=== PATIENT | male | born 1960 | race Caucasian/White ===

== ENCOUNTER 2020-03-03 10:18 | Emergency (ER) | payer OTHER ==
[~2020-03-03] VITALS: Ht 157.5 cm; Wt 70.0 kg
[2020-03-03] MEDS ORDERED: SODIUM CHLORIDE 0.9% 1,000 ML IV ONE (10:38)
[2020-03-03] MEDS ORDERED: ACETAMINOPHEN 325MG TABLET PO ONE (10:45)
[2020-03-03 10:59] LABS: BASOPHILS % 0.6 % (0.0-2.0); HEMATOCRIT. 44.5 % (42.0-52.0); HEMOGLOBIN. 15.2 g/dL (14.0-18.0); LYMPHOCYTES % 24.3 % (20.0-50.0); MEAN CORPUSCULAR HEMOGLOBIN 29.8 pg (28.0-32.0); MEAN CORPUSCULAR VOLUME 87.1 fL (80.0-94.0); MEAN PLATELET VOLUME 8.5 fl (7.4-10.4); MONOCYTES % 6.8 % (2.0-8.0); NEUTROPHILS % 68.3 % (40.0-76.0); PLATELET 243 x1000/uL (130-400); RED BLOOD CELL COUNT 5.11 mill/uL (4.7-6.1); RED CELL DISTRIBUTION WIDTH 12.8 % (11.6-14.6)
[2020-03-03 11:03] LABS: CHLORIDE 99 mEq/L (98-107)
[2020-03-03] MEDS ORDERED: IBUPROFEN 600MG TABLET PO ONE (11:45)
[2020-03-03 12:24] VITALS: BP 123/78
== END 2020-03-03 12:28 | disposition home or self-care (01) ==
LOC: ER 10:18
DX: Z20.828 Contact with and (suspected) exposure to other viral communicable diseases (principal); J18.9 Pneumonia, unspecified organism; R00.0 Tachycardia, unspecified; Z71.89 Other specified counseling
CPT/HCPCS: 36415; 71045; 80053; 85025; 99284; J7030

== ENCOUNTER 2020-03-06 08:45 | Inpatient (IN) | payer OTHER ==
[~2020-03-06] VITALS: Ht 154.9 cm; Wt 65.8 kg
[2020-03-06] MEDS ORDERED: ACETAMINOPHEN 325MG TABLET PO ONE (09:00)
[2020-03-06 10:13] LABS: BASOPHILS % 0.1 % (0.0-2.0); HEMATOCRIT. 42.6 % (42.0-52.0); HEMOGLOBIN. 14.7 g/dL (14.0-18.0); LYMPHOCYTES % 7.3 % (20.0-50.0); MEAN CORPUSCULAR HEMOGLOBIN 29.9 pg (28.0-32.0); MEAN CORPUSCULAR VOLUME 86.6 fL (80.0-94.0); MEAN PLATELET VOLUME 9.3 fl (7.4-10.4); MONOCYTES % 2.8 % (2.0-8.0); NEUTROPHILS % 89.8 % (40.0-76.0); PLATELET 314 x1000/uL (130-400); RED BLOOD CELL COUNT 4.92 mill/uL (4.7-6.1); RED CELL DISTRIBUTION WIDTH 12.7 % (11.6-14.6)
[2020-03-06 10:19] LABS: CHLORIDE 98 mEq/L (98-107)
[2020-03-06 10:26] LABS: CLARITY URINE CLEAR (CLEAR); COLOR URINE YELLOW (YELLOW); D-DIMER 0.59 mg/L FEU (<0.50); KETONES URINE 4+ (NEGATIVE); LEUKOCYTE ESTERASE URINE NEGATIVE (NEGATIVE); NITRITE URINE NEGATIVE (NEGATIVE); OCCULT BLOOD URINE TRACE (NEGATIVE); PROTEIN URINE 2+ (NEGATIVE); SPECIFIC GRAVITY URINE 1.035 (1.005-1.030)
[2020-03-06 10:28] LABS: CREATINE KINASE 396 IU/L (39-308)
[2020-03-06] MEDS ORDERED: SODIUM CHLORIDE 0.9% 1,000 ML IV ONE (10:52)
[2020-03-06 16:30] VITALS: BP 150/93
[2020-03-06 16:45] VITALS: BP 150/93
[2020-03-06] MEDS ORDERED: HYDROCODONE/ACETAMINOPHEN 5/325MG TABLET PO PRN (16:45)
[2020-03-06] MEDS ORDERED: ONDANSETRON HCL 4MG/2ML INJ IV PRN (16:45)
[2020-03-06] MEDS ORDERED: LORAZEPAM 0.5MG TABLET PO PRN (16:45)
[2020-03-06] MEDS ORDERED: DOCUSATE SODIUM 100MG CAPSULE PO PRN (16:45)
[2020-03-06] MEDS ORDERED: GLUCO8 MT (17:04)
[2020-03-06] MEDS: ACETAMINOPHEN 325MG TABLET PO PRN ×2 (17:14→23:32)
[2020-03-06] MEDS ORDERED: DEXTROSE 50% WATER 50ML SYRINGE IV PRN (17:30)
[2020-03-06] MEDS ORDERED: BLOOD SUGAR DIAGNOSTIC STRIP TEST SCH (17:40)
[2020-03-06] MEDS: AZITHROMYCIN 500 MG TABLET PO SCH (17:42)
[2020-03-06 18:09] LABS: BG CARBOXYHEMOGLOBIN 0.3 % (0.5-1.5); BG DEOXYHEMOGLOBIN 7.6 % (0.0-5.0); BG FRACTION INSPIRED OXYGEN 40; BG HCO3 ACT 17.3 mmol/L (22.0-26.0); BG METHEMOGLOBIN 0.3 % (0.0-1.5); BG OXYGEN SATURATION 92.4 % (92.0-98.5); BG OXYHEMOGLOBIN 91.8 % (94.0-97.0); BG PCO2 23.3 mmHg (35.0-45.0); BG PH 7.489 (7.350-7.450); BG SAMPLE SITE RIGHT RADIAL; BG VENT MODE NASAL CANNULA
[2020-03-06] MEDS ORDERED: INSULIN LISPRO 100 UNITS/ML SUBCUT SCH (18:10)
[2020-03-06 20:00] VITALS: BP 134/89
[2020-03-06] MEDS: ENOXAPARIN 40MG/0.4ML SYR SUBCUT SCH (21:11)
[2020-03-06] MEDS: CEFTRIAXONE 1 G PREMIX 50 ML IV SCH (23:13)
[2020-03-06] MEDS: CLONIDINE 0.1MG TABLET PO PRN (23:44)
[2020-03-07] VITALS: BP 163/91
[2020-03-07 04:00] VITALS: BP 141/87
[2020-03-07 08:00] VITALS: BP 139/73
[2020-03-07] MEDS: AZITHROMYCIN 500 MG TABLET PO SCH (08:08)
[2020-03-07] MEDS: ENOXAPARIN 40MG/0.4ML SYR SUBCUT SCH ×2 (08:09→21:17)
[2020-03-07 09:49] LABS: *AMPHETAMINES SCREEN URINE NEGATIVE (NEGATIVE); *BARBITURATES SCREEN URINE NEGATIVE (NEGATIVE); *BENZODIAZEPINES SCREEN URINE NEGATIVE (NEGATIVE); *COCAINE SCREEN URINE NEGATIVE (NEGATIVE); METHADONE URINE SCREEN NEGATIVE (NEGATIVE)
[2020-03-07 09:50] LABS: CANNABINOID URINE SCREEN NEGATIVE (NEGATIVE); OPIATES URINE SCREEN NEGATIVE (NEGATIVE); PHENCYCLIDINE URINE SCREEN NEGATIVE (NEGATIVE)
[2020-03-07 10:35] LABS: BG BASE EXCESS -4.6 mmol/L (-2.0-2.0); BG CARBOXYHEMOGLOBIN 0.6 % (0.5-1.5); BG DEOXYHEMOGLOBIN 10.5 % (0.0-5.0); BG FRACTION INSPIRED OXYGEN 36; BG HCO3 ACT 17.2 mmol/L (22.0-26.0); BG METHEMOGLOBIN 0.3 % (0.0-1.5); BG OXYGEN SATURATION 89.4 % (92.0-98.5); BG OXYHEMOGLOBIN 88.6 % (94.0-97.0); BG PCO2 24.2 mmHg (35.0-45.0); BG SAMPLE SITE RIGHT RADIAL; BG TOTAL HEMOGLOBIN 13.7 g/dL (12.0-18.0); BG VENT MODE NASAL CANNULA
[2020-03-07 12:00] VITALS: BP 130/79
[2020-03-07] MEDS: ACETAMINOPHEN 325MG TABLET PO PRN ×2 (12:28→21:18)
[2020-03-07 16:00] VITALS: BP 126/68
[2020-03-07] MEDS: GUAIFENESIN-DM 200MG-20MG/10ML UDC PO PRN (18:31)
[2020-03-07 20:00] VITALS: BP 134/80
[2020-03-07] MEDS: CEFTRIAXONE 1 G PREMIX 50 ML IV SCH (23:04)
[2020-03-08] VITALS: BP 129/84
[2020-03-08 04:00] VITALS: BP 124/73
[2020-03-08] MEDS: ACETAMINOPHEN 325MG TABLET PO PRN ×2 (04:19→13:30)
[2020-03-08] MEDS: GUAIFENESIN-DM 200MG-20MG/10ML UDC PO PRN (04:19)
[2020-03-08 05:00] LABS: BASOPHILS % 1.3 % (0.0-2.0); HEMATOCRIT. 39.1 % (42.0-52.0); HEMOGLOBIN. 13.6 g/dL (14.0-18.0); LYMPHOCYTES % 12.9 % (20.0-50.0); MEAN CORPUSCULAR HEMOGLOBIN 29.9 pg (28.0-32.0); MEAN PLATELET VOLUME 9.1 fl (7.4-10.4); MONOCYTES % 3.2 % (2.0-8.0); NEUTROPHILS % 82.6 % (40.0-76.0); PLATELET 377 x1000/uL (130-400); RED BLOOD CELL COUNT 4.54 mill/uL (4.7-6.1); RED CELL DISTRIBUTION WIDTH 12.7 % (11.6-14.6)
[2020-03-08 05:03] LABS: CHLORIDE 97 mEq/L (98-107)
[2020-03-08 05:08] LABS: PHOSPHORUS 3.2 mg/dL (2.5-4.9)
[2020-03-08 08:00] VITALS: BP 127/66
[2020-03-08] MEDS: AZITHROMYCIN 500 MG TABLET PO SCH (08:46)
[2020-03-08] MEDS: ENOXAPARIN 40MG/0.4ML SYR SUBCUT SCH (08:47)
[2020-03-08] MEDS ORDERED: BENZONATATE 100MG CAPSULE PO PRN (10:30)
[2020-03-08 12:00] VITALS: BP 150/87
[2020-03-08] MEDS: METHYLPREDNISOLONE SOD SUCC 40 MG/ML VIAL IV SCH ×2 (13:05→20:26)
[2020-03-08] MEDS: GUAIFENESIN 600MG ER TABLET PO SCH ×2 (13:05→20:26)
[2020-03-08] MEDS: ALBUTEROL 6.7GM HFA INHALER ORI SCH ×3 (13:06→23:19)
[2020-03-08 16:00] VITALS: BP 142/80
[2020-03-08] MEDS: ENOXAPARIN 80MG/0.8ML SYR SUBCUT SCH (17:00)
[2020-03-08] MEDS: BLOOD SUGAR DIAGNOSTIC STRIP TEST SCH ×2 (18:22→20:26)
[2020-03-08] MEDS: INSULIN LISPRO 100 UNITS/ML SUBCUT SCH ×2 (18:31→20:26)
[2020-03-08 20:51] VITALS: BP 139/79
[2020-03-08] MEDS: INSULIN GLARGINE UD 100 UNITS/ML SYR SUBCUT SCH (22:15)
[2020-03-08] MEDS: CEFTRIAXONE 1 G PREMIX 50 ML IV SCH (23:00)
[2020-03-09] VITALS: BP 136/83
[2020-03-09 04:00] VITALS: BP 129/81
[2020-03-09] MEDS: ENOXAPARIN 80MG/0.8ML SYR SUBCUT SCH ×2 (04:32→17:11)
[2020-03-09] MEDS: ALBUTEROL 6.7GM HFA INHALER ORI SCH ×3 (06:19→17:25)
[2020-03-09] MEDS: BLOOD SUGAR DIAGNOSTIC STRIP TEST SCH ×4 (06:57→21:31)
[2020-03-09] MEDS: INSULIN LISPRO 100 UNITS/ML SUBCUT SCH ×4 (07:39→21:31)
[2020-03-09 08:00] VITALS: BP 159/90
[2020-03-09] MEDS: METHYLPREDNISOLONE SOD SUCC 40 MG/ML VIAL IV SCH ×2 (08:10→20:48)
[2020-03-09] MEDS: GUAIFENESIN 600MG ER TABLET PO SCH ×2 (08:10→20:48)
[2020-03-09] MEDS: AZITHROMYCIN 500 MG TABLET PO SCH (08:10)
[2020-03-09] MEDS: GUAIFENESIN-DM 200MG-20MG/10ML UDC PO PRN (08:10)
[2020-03-09] MEDS: INSULIN GLARGINE UD 100 UNITS/ML SYR SUBCUT SCH ×2 (09:49→21:30)
[2020-03-09 12:00] VITALS: BP 166/91
[2020-03-09] MEDS: CLONIDINE 0.1MG TABLET PO PRN (12:43)
[2020-03-09 14:40] LABS: BG BASE EXCESS -9.6 mmol/L (-2.0-2.0); BG CARBOXYHEMOGLOBIN 0.2 % (0.5-1.5); BG DEOXYHEMOGLOBIN 6.6 % (0.0-5.0); BG HCO3 ACT 12.8 mmol/L (22.0-26.0); BG METHEMOGLOBIN 0.3 % (0.0-1.5); BG OXYGEN SATURATION 93.4 % (92.0-98.5); BG OXYHEMOGLOBIN 92.9 % (94.0-97.0); BG PCO2 21.2 mmHg (35.0-45.0); BG PO2 72.4 mmHg (75.0-100.0); BG SAMPLE SITE RIGHT RADIAL; BG TOTAL HEMOGLOBIN 14.2 g/dL (12.0-18.0); BG VENT MODE MASK - NRB
[2020-03-09 16:00] VITALS: BP 166/88
[2020-03-09] MEDS ORDERED: REMDESIVIR 200 MG in SODIUM CHLORIDE 0.9% 250 ML IV NR (17:00)
[2020-03-09 20:00] VITALS: BP 145/83
[2020-03-09] MEDS: CEFTRIAXONE 1 G PREMIX 50 ML IV SCH (23:53)
[2020-03-10] VITALS (57 sets, daily range): BP systolic 83–161; BP diastolic 57–97
[2020-03-10] MEDS: ALBUTEROL 6.7GM HFA INHALER ORI SCH ×3 (00:09→16:25)
[2020-03-10] MEDS: ENOXAPARIN 80MG/0.8ML SYR SUBCUT SCH ×2 (06:17→17:59)
[2020-03-10] MEDS: CLONIDINE 0.1MG TABLET PO PRN (06:19)
[2020-03-10] MEDS: BLOOD SUGAR DIAGNOSTIC STRIP TEST SCH ×4 (06:39→21:20)
[2020-03-10] MEDS: INSULIN LISPRO 100 UNITS/ML SUBCUT SCH ×4 (06:39→21:25)
[2020-03-10] MEDS: AZITHROMYCIN 500 MG TABLET PO SCH (08:11)
[2020-03-10] MEDS: GUAIFENESIN 600MG ER TABLET PO SCH ×2 (08:11→20:57)
[2020-03-10] MEDS: METHYLPREDNISOLONE SOD SUCC 40 MG/ML VIAL IV SCH ×2 (08:11→21:26)
[2020-03-10 09:14] LABS: HEMATOCRIT. 41.7 % (42.0-52.0); HEMOGLOBIN. 13.8 g/dL (14.0-18.0); MEAN CORPUSCULAR HEMOGLOBIN 28.9 pg (28.0-32.0); MEAN CORPUSCULAR VOLUME 87.5 fL (80.0-94.0); MEAN PLATELET VOLUME 9.5 fl (7.4-10.4); PLATELET 441 x1000/uL (130-400); RED BLOOD CELL COUNT 4.77 mill/uL (4.7-6.1); RED CELL DISTRIBUTION WIDTH 13.1 % (11.6-14.6)
[2020-03-10 09:30] LABS: CHLORIDE 100 mEq/L (98-107)
[2020-03-10] MEDS: MIDAZOLAM HCL 100 MG in DEXT 5% WATER 80 ML IV PRN ×2 (10:00→21:27)
[2020-03-10] MEDS: FENTANYL CITRATE/PF 500 MCG in SODIUM CHLORIDE 0.9% 40 ML IV PRN ×3 (10:00→21:24)
[2020-03-10 10:52] LABS: BG BASE EXCESS -7.5 mmol/L (-2.0-2.0); BG CARBOXYHEMOGLOBIN 0.6 % (0.5-1.5); BG DEOXYHEMOGLOBIN 0.9 % (0.0-5.0); BG FRACTION INSPIRED OXYGEN 100; BG HCO3 ACT 16.5 mmol/L (22.0-26.0); BG METHEMOGLOBIN 0.3 % (0.0-1.5); BG OXYGEN SATURATION 99.1 % (92.0-98.5); BG OXYHEMOGLOBIN 98.2 % (94.0-97.0); BG PCO2 29.4 mmHg (35.0-45.0); BG PH 7.366 (7.350-7.450); BG PO2 271.1 mmHg (75.0-100.0); BG SAMPLE SITE RIGHT RADIAL; BG TIDAL VOLUME(mL) 500 mL; BG TOTAL HEMOGLOBIN 13.8 g/dL (12.0-18.0); BG VENT MODE VENT - A/C; BG VENT RATE 20 set
[2020-03-10] MEDS ORDERED: NOREPINEPHRINE 4MG/250ML PMX 250 ML IV ONE (12:00)
[2020-03-10] MEDS ORDERED: NOREPINEPHRINE 4 MG in DEXT 5% WATER 246 ML IV PRN (12:15)
[2020-03-10 13:18] LABS: PLATELET ESTIMATE INCREASED
[2020-03-10] MEDS: INSULIN GLARGINE UD 100 UNITS/ML SYR SUBCUT SCH ×2 (14:01→21:26)
[2020-03-10] MEDS: REMDESIVIR 100 MG in SODIUM CHLORIDE 0.9% 250 ML IV SCH (15:35)
[2020-03-10] MEDS: SODIUM CHLORIDE 0.9% 1,000 ML IV SCH (17:04)
[2020-03-10] MEDS ORDERED: POTASSIUM CHLORIDE INJ 40 MEQ in DEXT 5% WATER 250 ML IV NR (19:00)
[2020-03-10] MEDS: CEFTRIAXONE 1 G PREMIX 50 ML IV SCH (23:01)
[2020-03-11] VITALS (93 sets, daily range): BP systolic 92–133; BP diastolic 54–80
[2020-03-11 05:08] LABS: HEMATOCRIT. 41.4 % (42.0-52.0); HEMOGLOBIN. 13.8 g/dL (14.0-18.0); MEAN CORPUSCULAR HEMOGLOBIN 28.8 pg (28.0-32.0); MEAN CORPUSCULAR VOLUME 86.9 fL (80.0-94.0); MEAN PLATELET VOLUME 10.2 fl (7.4-10.4); PLATELET 453 x1000/uL (130-400); RED BLOOD CELL COUNT 4.77 mill/uL (4.7-6.1); RED CELL DISTRIBUTION WIDTH 13.1 % (11.6-14.6)
[2020-03-11 05:13] LABS: CHLORIDE 107 mEq/L (98-107)
[2020-03-11] MEDS: BLOOD SUGAR DIAGNOSTIC STRIP TEST SCH ×4 (05:18→20:51)
[2020-03-11] MEDS: INSULIN LISPRO 100 UNITS/ML SUBCUT SCH ×4 (05:30→20:51)
[2020-03-11] MEDS: ENOXAPARIN 80MG/0.8ML SYR SUBCUT SCH ×2 (05:30→17:44)
[2020-03-11] MEDS: AZITHROMYCIN 500 MG TABLET PO SCH (08:36)
[2020-03-11] MEDS: METHYLPREDNISOLONE SOD SUCC 40 MG/ML VIAL IV SCH ×2 (08:36→20:50)
[2020-03-11] MEDS: GUAIFENESIN 600MG ER TABLET PO SCH ×2 (08:36→20:50)
[2020-03-11] MEDS: SODIUM CHLORIDE 0.9% 1,000 ML IV SCH (08:37)
[2020-03-11 09:24] LABS: PLATELET ESTIMATE INCREASED
[2020-03-11] MEDS: FENTANYL CITRATE/PF 500 MCG in SODIUM CHLORIDE 0.9% 40 ML IV PRN ×2 (09:47→21:17)
[2020-03-11 09:57] LABS: BG BASE EXCESS -3.9 mmol/L (-2.0-2.0); BG CARBOXYHEMOGLOBIN 0.6 % (0.5-1.5); BG DEOXYHEMOGLOBIN 4.2 % (0.0-5.0); BG HCO3 ACT 19.7 mmol/L (22.0-26.0); BG METHEMOGLOBIN 0.3 % (0.0-1.5); BG OXYGEN SATURATION 95.8 % (92.0-98.5); BG OXYHEMOGLOBIN 94.9 % (94.0-97.0); BG PCO2 31.8 mmHg (35.0-45.0); BG PO2 84.4 mmHg (75.0-100.0); BG SAMPLE SITE RIGHT RADIAL; BG TIDAL VOLUME(mL) 500 mL; BG TOTAL HEMOGLOBIN 14.1 g/dL (12.0-18.0); BG VENT MODE VENT - A/C; BG VENT RATE 20 set
[2020-03-11] MEDS: INSULIN GLARGINE UD 100 UNITS/ML SYR SUBCUT SCH ×2 (11:56→21:00)
[2020-03-11] MEDS ORDERED: LIDOCAINE HCL/PF 1% 2ML VIAL ONE (13:17)
[2020-03-11] MEDS: REMDESIVIR 100 MG in SODIUM CHLORIDE 0.9% 250 ML IV SCH (13:52)
[2020-03-11] MEDS: ALBUTEROL 6.7GM HFA INHALER ORI SCH (21:00)
[2020-03-11] MEDS: MIDAZOLAM HCL 100 MG in DEXT 5% WATER 80 ML IV PRN (21:16)
[2020-03-11] MEDS: CEFTRIAXONE 1 G PREMIX 50 ML IV SCH (22:53)
[2020-03-12] VITALS (71 sets, daily range): BP systolic 94–150; BP diastolic 56–78
[2020-03-12] MEDS: ALBUTEROL 6.7GM HFA INHALER ORI SCH ×5 (00:15→20:17)
[2020-03-12] MEDS: ENOXAPARIN 80MG/0.8ML SYR SUBCUT SCH ×2 (05:20→18:00)
[2020-03-12 05:34] LABS: CHLORIDE 108 mEq/L (98-107)
[2020-03-12 05:37] LABS: HEMATOCRIT. 41.4 % (42.0-52.0); HEMOGLOBIN. 13.5 g/dL (14.0-18.0); MEAN CORPUSCULAR HEMOGLOBIN 28.8 pg (28.0-32.0); MEAN CORPUSCULAR VOLUME 88.2 fL (80.0-94.0); MEAN PLATELET VOLUME 9.7 fl (7.4-10.4); PLATELET 502 x1000/uL (130-400); RED CELL DISTRIBUTION WIDTH 13.8 % (11.6-14.6)
[2020-03-12] MEDS: BLOOD SUGAR DIAGNOSTIC STRIP TEST SCH ×4 (06:02→20:33)
[2020-03-12] MEDS: INSULIN LISPRO 100 UNITS/ML SUBCUT SCH ×4 (06:03→20:32)
[2020-03-12 08:12] LABS: BG BASE EXCESS -3.3 mmol/L (-2.0-2.0); BG CARBOXYHEMOGLOBIN 0.3 % (0.5-1.5); BG DEOXYHEMOGLOBIN 2.1 % (0.0-5.0); BG FRACTION INSPIRED OXYGEN 60; BG HCO3 ACT 21.1 mmol/L (22.0-26.0); BG METHEMOGLOBIN 0.3 % (0.0-1.5); BG OXYGEN SATURATION 97.9 % (92.0-98.5); BG OXYHEMOGLOBIN 97.3 % (94.0-97.0); BG PH 7.385 (7.350-7.450); BG PO2 129.6 mmHg (75.0-100.0); BG SAMPLE SITE RIGHT RADIAL; BG TIDAL VOLUME(mL) 500 mL; BG TOTAL HEMOGLOBIN 14.3 g/dL (12.0-18.0); BG VENT MODE PRVC; BG VENT RATE 20 set
[2020-03-12] MEDS: FENTANYL CITRATE/PF 1,000 MCG in SODIUM CHLORIDE 0.9% 80 ML IV PRN (08:23)
[2020-03-12] MEDS: GUAIFENESIN 600MG ER TABLET PO SCH ×2 (08:36→20:31)
[2020-03-12] MEDS: METHYLPREDNISOLONE SOD SUCC 40 MG/ML VIAL IV SCH ×2 (09:00→20:31)
[2020-03-12] MEDS: AZITHROMYCIN 500 MG TABLET PO SCH (09:00)
[2020-03-12] MEDS: PANTOPRAZOLE SODIUM 40 MG/VIAL IV SCH (11:23)
[2020-03-12] MEDS: SODIUM CHLORIDE 0.9% 1,000 ML IV SCH (11:24)
[2020-03-12 12:34] LABS: PLATELET ESTIMATE INCREASED
[2020-03-12] MEDS: REMDESIVIR 100 MG in SODIUM CHLORIDE 0.9% 250 ML IV SCH (14:00)
[2020-03-12] MEDS ORDERED: INSULIN GLARGINE UD 100 UNITS/ML SYR SUBCUT SCH (22:00)
[2020-03-13] VITALS (88 sets, daily range): BP systolic 94–161; BP diastolic 56–79
[2020-03-13] MEDS: ALBUTEROL 6.7GM HFA INHALER ORI SCH ×5 (00:29→20:30)
[2020-03-13 05:54] LABS: BASOPHILS % 0.2 % (0.0-2.0); EOSINOPHILS % 0.1 % (0.0-5.0); HEMOGLOBIN. 13.2 g/dL (14.0-18.0); LYMPHOCYTES % 7.9 % (20.0-50.0); MEAN CORPUSCULAR HEMOGLOBIN 29.6 pg (28.0-32.0); MEAN CORPUSCULAR VOLUME 87.6 fL (80.0-94.0); MEAN PLATELET VOLUME 9.4 fl (7.4-10.4); NEUTROPHILS % 86.8 % (40.0-76.0); PLATELET 514 x1000/uL (130-400); RED BLOOD CELL COUNT 4.45 mill/uL (4.7-6.1); RED CELL DISTRIBUTION WIDTH 13.3 % (11.6-14.6)
[2020-03-13 06:09] LABS: CHLORIDE 108 mEq/L (98-107)
[2020-03-13] MEDS: BLOOD SUGAR DIAGNOSTIC STRIP TEST SCH ×4 (06:09→20:19)
[2020-03-13 06:17] LABS: PHOSPHORUS 3.5 mg/dL (2.5-4.9)
[2020-03-13] MEDS: ENOXAPARIN 80MG/0.8ML SYR SUBCUT SCH ×2 (06:27→17:22)
[2020-03-13] MEDS: INSULIN LISPRO 100 UNITS/ML SUBCUT SCH ×4 (06:28→20:19)
[2020-03-13] MEDS: SODIUM CHLORIDE 0.9% 1,000 ML IV SCH (06:28)
[2020-03-13 08:21] LABS: BG BASE EXCESS 0.3 mmol/L (-2.0-2.0); BG CARBOXYHEMOGLOBIN 0.2 % (0.5-1.5); BG DEOXYHEMOGLOBIN 2.6 % (0.0-5.0); BG HCO3 ACT 24.6 mmol/L (22.0-26.0); BG METHEMOGLOBIN 0.1 % (0.0-1.5); BG OXYGEN SATURATION 97.4 % (92.0-98.5); BG OXYHEMOGLOBIN 97.1 % (94.0-97.0); BG PCO2 38.4 mmHg (35.0-45.0); BG PH 7.424 (7.350-7.450); BG PO2 113.1 mmHg (75.0-100.0); BG SAMPLE SITE RIGHT RADIAL; BG TIDAL VOLUME(mL) 500 mL; BG TOTAL HEMOGLOBIN 13.7 g/dL (12.0-18.0); BG VENT MODE VENT - A/C; BG VENT RATE 20 set
[2020-03-13] MEDS: GUAIFENESIN 600MG ER TABLET PO SCH ×2 (09:00→20:18)
[2020-03-13] MEDS: PANTOPRAZOLE SODIUM 40 MG/VIAL IV SCH (09:50)
[2020-03-13] MEDS: METHYLPREDNISOLONE SOD SUCC 40 MG/ML VIAL IV SCH ×2 (09:51→20:18)
[2020-03-13] MEDS: AZITHROMYCIN 500 MG TABLET PO SCH (09:52)
[2020-03-13] MEDS: INSULIN GLARGINE UD 100 UNITS/ML SYR SUBCUT SCH ×2 (10:44→21:19)
[2020-03-13] MEDS: MIDAZOLAM HCL 100 MG in DEXT 5% WATER 80 ML IV PRN (11:30)
[2020-03-13] MEDS: REMDESIVIR 100 MG in SODIUM CHLORIDE 0.9% 250 ML IV SCH (14:34)
[2020-03-14] VITALS (55 sets, daily range): BP systolic 95–166; BP diastolic 60–87
[2020-03-14] MEDS: ALBUTEROL 6.7GM HFA INHALER ORI SCH ×6 (00:25→16:17)
[2020-03-14] MEDS: SODIUM CHLORIDE 0.9% 1,000 ML IV SCH ×2 (03:32→23:58)
[2020-03-14] MEDS: ENOXAPARIN 80MG/0.8ML SYR SUBCUT SCH ×2 (04:45→18:00)
[2020-03-14] MEDS: FENTANYL CITRATE/PF 1,000 MCG in SODIUM CHLORIDE 0.9% 80 ML IV PRN (04:46)
[2020-03-14] MEDS: MIDAZOLAM HCL 100 MG in DEXT 5% WATER 80 ML IV PRN (04:46)
[2020-03-14] MEDS: BLOOD SUGAR DIAGNOSTIC STRIP TEST SCH ×3 (05:37→21:45)
[2020-03-14 05:49] LABS: BASOPHILS % 0.2 % (0.0-2.0); CHLORIDE 108 mEq/L (98-107); HEMOGLOBIN. 13.4 g/dL (14.0-18.0); LYMPHOCYTES % 11.6 % (20.0-50.0); MEAN CORPUSCULAR HEMOGLOBIN 29.5 pg (28.0-32.0); MEAN CORPUSCULAR VOLUME 88.2 fL (80.0-94.0); MEAN PLATELET VOLUME 9.1 fl (7.4-10.4); MONOCYTES % 7.3 % (2.0-8.0); NEUTROPHILS % 80.9 % (40.0-76.0); PLATELET 554 x1000/uL (130-400); RED BLOOD CELL COUNT 4.54 mill/uL (4.7-6.1); RED CELL DISTRIBUTION WIDTH 13.3 % (11.6-14.6)
[2020-03-14] MEDS: INSULIN LISPRO 100 UNITS/ML SUBCUT SCH ×3 (06:11→21:43)
[2020-03-14 07:50] LABS: BG BASE EXCESS 1.6 mmol/L (-2.0-2.0); BG CARBOXYHEMOGLOBIN 0.1 % (0.5-1.5); BG DEOXYHEMOGLOBIN 2.3 % (0.0-5.0); BG HCO3 ACT 24.6 mmol/L (22.0-26.0); BG METHEMOGLOBIN 0.3 % (0.0-1.5); BG OXYGEN SATURATION 97.7 % (92.0-98.5); BG OXYHEMOGLOBIN 97.3 % (94.0-97.0); BG PCO2 33.6 mmHg (35.0-45.0); BG PH 7.483 (7.350-7.450); BG PO2 108.5 mmHg (75.0-100.0); BG SAMPLE SITE RIGHT RADIAL; BG TIDAL VOLUME(mL) 500 mL; BG TOTAL HEMOGLOBIN 12.5 g/dL (12.0-18.0); BG VENT MODE VENT - A/C; BG VENT RATE 20 set
[2020-03-14] MEDS: PANTOPRAZOLE SODIUM 40 MG/VIAL IV SCH (09:50)
[2020-03-14] MEDS ORDERED: LACTULOSE 20G/30ML UDC PO SCH (10:15)
[2020-03-14] MEDS: METHYLPREDNISOLONE SOD SUCC 40 MG/ML VIAL IV SCH ×2 (10:46→21:45)
[2020-03-14] MEDS: GUAIFENESIN 600MG ER TABLET PO SCH ×3 (10:47→21:44)
[2020-03-14] MEDS ORDERED: INSULIN GLARGINE UD 100 UNITS/ML SYR SUBCUT SCH (11:00)
[2020-03-14] MEDS: INSULIN GLARGINE UD 100 UNITS/ML SYR SUBCUT SCH ×2 (11:26→21:43)
[2020-03-14 16:13] LABS: BG BASE EXCESS -0.4 mmol/L (-2.0-2.0); BG CARBOXYHEMOGLOBIN 0.2 % (0.5-1.5); BG DEOXYHEMOGLOBIN 2.1 % (0.0-5.0); BG HCO3 ACT 23.8 mmol/L (22.0-26.0); BG OXYGEN SATURATION 97.9 % (92.0-98.5); BG OXYHEMOGLOBIN 97.7 % (94.0-97.0); BG PCO2 37.6 mmHg (35.0-45.0); BG PH 7.419 (7.350-7.450); BG PO2 128.4 mmHg (75.0-100.0); BG SAMPLE SITE RIGHT RADIAL; BG TIDAL VOLUME(mL) 500 mL; BG TOTAL HEMOGLOBIN 13.5 g/dL (12.0-18.0); BG VENT MODE VENT - A/C; BG VENT RATE 16 set
[2020-03-15] VITALS (36 sets, daily range): BP systolic 100–126; BP diastolic 55–79
[2020-03-15] MEDS: MIDAZOLAM HCL 100 MG in DEXT 5% WATER 80 ML IV PRN (02:47)
[2020-03-15] MEDS: FENTANYL CITRATE/PF 1,000 MCG in SODIUM CHLORIDE 0.9% 80 ML IV PRN ×2 (02:49→22:11)
[2020-03-15] MEDS: ALBUTEROL 6.7GM HFA INHALER ORI SCH ×5 (04:45→20:10)
[2020-03-15] MEDS: ENOXAPARIN 80MG/0.8ML SYR SUBCUT SCH ×2 (05:42→21:02)
[2020-03-15] MEDS: INSULIN LISPRO 100 UNITS/ML SUBCUT SCH ×4 (05:43→21:03)
[2020-03-15 05:48] LABS: CHLORIDE 109 mEq/L (98-107)
[2020-03-15 05:54] LABS: BASOPHILS % 0.3 % (0.0-2.0); HEMATOCRIT. 38.6 % (42.0-52.0); HEMOGLOBIN. 13.1 g/dL (14.0-18.0); LYMPHOCYTES % 9.6 % (20.0-50.0); MEAN CORPUSCULAR VOLUME 88.4 fL (80.0-94.0); MEAN PLATELET VOLUME 9.3 fl (7.4-10.4); MONOCYTES % 9.9 % (2.0-8.0); NEUTROPHILS % 80.2 % (40.0-76.0); PLATELET 519 x1000/uL (130-400); RED BLOOD CELL COUNT 4.36 mill/uL (4.7-6.1); RED CELL DISTRIBUTION WIDTH 13.4 % (11.6-14.6)
[2020-03-15] MEDS: BLOOD SUGAR DIAGNOSTIC STRIP TEST SCH ×4 (06:42→21:01)
[2020-03-15] MEDS: METHYLPREDNISOLONE SOD SUCC 40 MG/ML VIAL IV SCH ×2 (08:33→21:02)
[2020-03-15] MEDS: PANTOPRAZOLE SODIUM 40 MG/VIAL IV SCH (08:33)
[2020-03-15] MEDS: GUAIFENESIN 600MG ER TABLET PO SCH (08:34)
[2020-03-15 09:37] LABS: BG BASE EXCESS -0.1 mmol/L (-2.0-2.0); BG CARBOXYHEMOGLOBIN 0.3 % (0.5-1.5); BG FRACTION INSPIRED OXYGEN 40; BG HCO3 ACT 23.7 mmol/L (22.0-26.0); BG METHEMOGLOBIN 0.3 % (0.0-1.5); BG OXYHEMOGLOBIN 97.4 % (94.0-97.0); BG PCO2 35.8 mmHg (35.0-45.0); BG PH 7.438 (7.350-7.450); BG PO2 125.9 mmHg (75.0-100.0); BG SAMPLE SITE RIGHT RADIAL; BG TIDAL VOLUME(mL) 500 mL; BG TOTAL HEMOGLOBIN 13.2 g/dL (12.0-18.0); BG VENT MODE VENT- PRVC; BG VENT RATE 16 set
[2020-03-15] MEDS: INSULIN GLARGINE UD 100 UNITS/ML SYR SUBCUT SCH ×2 (10:22→21:04)
[2020-03-15] MEDS ORDERED: GUAIFENESIN 200MG/10ML SUGAR FREE UDC PO PRN (13:45)
[2020-03-15] MEDS: SODIUM CHLORIDE 0.9% 1,000 ML IV SCH (19:00)
[2020-03-16] VITALS (97 sets, daily range): BP systolic 87–200; BP diastolic 57–161
[2020-03-16] MEDS: ALBUTEROL 6.7GM HFA INHALER ORI SCH ×6 (00:15→20:10)
[2020-03-16] MEDS: FENTANYL CITRATE/PF 1,000 MCG in SODIUM CHLORIDE 0.9% 80 ML IV PRN (04:03)
[2020-03-16 05:48] LABS: HEMATOCRIT. 38.4 % (42.0-52.0); HEMOGLOBIN. 12.8 g/dL (14.0-18.0); MEAN CORPUSCULAR HEMOGLOBIN 29.5 pg (28.0-32.0); MEAN CORPUSCULAR VOLUME 88.4 fL (80.0-94.0); MEAN PLATELET VOLUME 9.6 fl (7.4-10.4); PLATELET 436 x1000/uL (130-400); RED BLOOD CELL COUNT 4.35 mill/uL (4.7-6.1); RED CELL DISTRIBUTION WIDTH 13.1 % (11.6-14.6)
[2020-03-16 06:02] LABS: CHLORIDE 106 mEq/L (98-107)
[2020-03-16] MEDS: BLOOD SUGAR DIAGNOSTIC STRIP TEST SCH ×4 (06:18→21:00)
[2020-03-16] MEDS: INSULIN LISPRO 100 UNITS/ML SUBCUT SCH ×5 (06:26→21:00)
[2020-03-16] MEDS ORDERED: LORAZEPAM 2MG/ML CPJ IV SCH (08:15)
[2020-03-16 08:31] LABS: BG BASE EXCESS 2.4 mmol/L (-2.0-2.0); BG CARBOXYHEMOGLOBIN 0.3 % (0.5-1.5); BG DEOXYHEMOGLOBIN 1.7 % (0.0-5.0); BG FRACTION INSPIRED OXYGEN 40; BG HCO3 ACT 26.3 mmol/L (22.0-26.0); BG METHEMOGLOBIN 0.3 % (0.0-1.5); BG OXYGEN SATURATION 98.3 % (92.0-98.5); BG OXYHEMOGLOBIN 97.7 % (94.0-97.0); BG PCO2 38.2 mmHg (35.0-45.0); BG PH 7.455 (7.350-7.450); BG PO2 134.6 mmHg (75.0-100.0); BG SAMPLE SITE RIGHT RADIAL; BG TIDAL VOLUME(mL) 500 mL; BG TOTAL HEMOGLOBIN 12.7 g/dL (12.0-18.0); BG VENT MODE VENT- PRVC; BG VENT RATE 16 set
[2020-03-16] MEDS: METHYLPREDNISOLONE SOD SUCC 40 MG/ML VIAL IV SCH ×2 (08:37→21:00)
[2020-03-16] MEDS: PANTOPRAZOLE SODIUM 40 MG/VIAL IV SCH (08:37)
[2020-03-16] MEDS: ENOXAPARIN 80MG/0.8ML SYR SUBCUT SCH ×2 (08:38→21:00)
[2020-03-16 09:20] LABS: PLATELET ESTIMATE SLIGHTLY INCREASED
[2020-03-16] MEDS: INSULIN GLARGINE UD 100 UNITS/ML SYR SUBCUT SCH ×2 (10:47→22:00)
[2020-03-16] MEDS: SODIUM CHLORIDE 0.9% 1,000 ML IV SCH (14:50)
[2020-03-16] MEDS: LORAZEPAM 2MG/ML CPJ IV PRN (17:15)
[2020-03-17] VITALS (75 sets, daily range): BP systolic 90–197; BP diastolic 46–161
[2020-03-17] MEDS: ALBUTEROL 6.7GM HFA INHALER ORI SCH ×6 (00:45→21:46)
[2020-03-17] MEDS: LORAZEPAM 2MG/ML CPJ IV PRN ×4 (01:46→20:32)
[2020-03-17 05:52] LABS: BASOPHILS % 0.1 % (0.0-2.0); HEMATOCRIT. 38.6 % (42.0-52.0); HEMOGLOBIN. 12.7 g/dL (14.0-18.0); LYMPHOCYTES % 7.5 % (20.0-50.0); MEAN CORPUSCULAR HEMOGLOBIN 29.1 pg (28.0-32.0); MEAN CORPUSCULAR VOLUME 88.3 fL (80.0-94.0); MEAN PLATELET VOLUME 9.7 fl (7.4-10.4); MONOCYTES % 6.3 % (2.0-8.0); NEUTROPHILS % 86.1 % (40.0-76.0); PLATELET 402 x1000/uL (130-400); RED BLOOD CELL COUNT 4.38 mill/uL (4.7-6.1); RED CELL DISTRIBUTION WIDTH 13.3 % (11.6-14.6)
[2020-03-17 05:54] LABS: CHLORIDE 105 mEq/L (98-107)
[2020-03-17] MEDS: BLOOD SUGAR DIAGNOSTIC STRIP TEST SCH ×4 (06:30→21:45)
[2020-03-17] MEDS: INSULIN LISPRO 100 UNITS/ML SUBCUT SCH ×4 (07:44→21:00)
[2020-03-17] MEDS: METHYLPREDNISOLONE SOD SUCC 40 MG/ML VIAL IV SCH (09:22)
[2020-03-17] MEDS: ENOXAPARIN 80MG/0.8ML SYR SUBCUT SCH ×2 (09:22→21:24)
[2020-03-17] MEDS: PANTOPRAZOLE SODIUM 40 MG/VIAL IV SCH (09:22)
[2020-03-17] MEDS: INSULIN GLARGINE UD 100 UNITS/ML SYR SUBCUT SCH ×2 (09:23→22:25)
[2020-03-17] MEDS: SODIUM CHLORIDE 0.9% 1,000 ML IV SCH (11:01)
[2020-03-17 11:45] LABS: BG BASE EXCESS 3.6 mmol/L (-2.0-2.0); BG CARBOXYHEMOGLOBIN 0.4 % (0.5-1.5); BG FRACTION INSPIRED OXYGEN 40; BG HCO3 ACT 27.6 mmol/L (22.0-26.0); BG METHEMOGLOBIN 0.3 % (0.0-1.5); BG OXYHEMOGLOBIN 96.3 % (94.0-97.0); BG PCO2 39.9 mmHg (35.0-45.0); BG PH 7.458 (7.350-7.450); BG PO2 90.9 mmHg (75.0-100.0); BG PRESSURE SUPPORT 8; BG SAMPLE SITE RIGHT RADIAL; BG TOTAL HEMOGLOBIN 13.6 g/dL (12.0-18.0); BG VENT MODE MASK - CPAP
[2020-03-17] MEDS: CLONIDINE 0.1MG TABLET PO PRN ×2 (14:24→21:23)
[2020-03-17] MEDS: ACETAMINOPHEN 325MG TABLET PO PRN (21:23)
[2020-03-18] VITALS (48 sets, daily range): BP systolic 106–183; BP diastolic 54–107
[2020-03-18] MEDS: LORAZEPAM 2MG/ML CPJ IV PRN ×2 (00:20→04:58)
[2020-03-18] MEDS: ALBUTEROL 6.7GM HFA INHALER ORI SCH ×3 (01:25→20:55)
[2020-03-18] MEDS: SODIUM CHLORIDE 0.9% 1,000 ML IV SCH (04:58)
[2020-03-18] MEDS: CLONIDINE 0.1MG TABLET PO PRN (04:58)
[2020-03-18 05:05] LABS: BASOPHILS % 0.3 % (0.0-2.0); EOSINOPHILS % 0.1 % (0.0-5.0); HEMATOCRIT. 42.4 % (42.0-52.0); HEMOGLOBIN. 14.6 g/dL (14.0-18.0); LYMPHOCYTES % 12.8 % (20.0-50.0); MEAN CORPUSCULAR HEMOGLOBIN 29.8 pg (28.0-32.0); MEAN CORPUSCULAR VOLUME 86.7 fL (80.0-94.0); MEAN PLATELET VOLUME 9.5 fl (7.4-10.4); MONOCYTES % 9.4 % (2.0-8.0); NEUTROPHILS % 77.4 % (40.0-76.0); PLATELET 430 x1000/uL (130-400); RED CELL DISTRIBUTION WIDTH 12.9 % (11.6-14.6)
[2020-03-18 05:15] LABS: CHLORIDE 98 mEq/L (98-107)
[2020-03-18] MEDS: BLOOD SUGAR DIAGNOSTIC STRIP TEST SCH ×4 (06:25→21:00)
[2020-03-18] MEDS: INSULIN LISPRO 100 UNITS/ML SUBCUT SCH ×4 (06:25→21:00)
[2020-03-18] MEDS: DEXTROSE 50% WATER 50ML SYRINGE IV PRN ×2 (06:44→12:57)
[2020-03-18] MEDS ORDERED: METHYLPREDNISOLONE SOD SUCC 40 MG/ML VIAL IV SCH (09:00)
[2020-03-18 09:06] LABS: BG BASE EXCESS 6.9 mmol/L (-2.0-2.0); BG CARBOXYHEMOGLOBIN 0.8 % (0.5-1.5); BG DEOXYHEMOGLOBIN 5.6 % (0.0-5.0); BG FRACTION INSPIRED OXYGEN 32; BG HCO3 ACT 28.7 mmol/L (22.0-26.0); BG METHEMOGLOBIN 0.1 % (0.0-1.5); BG OXYGEN SATURATION 94.3 % (92.0-98.5); BG OXYHEMOGLOBIN 93.5 % (94.0-97.0); BG PCO2 32.1 mmHg (35.0-45.0); BG PH 7.569 (7.350-7.450); BG SAMPLE SITE RIGHT RADIAL; BG VENT MODE NASAL CANNULA
[2020-03-18] MEDS ORDERED: POTASSIUM CHLORIDE 20MEQ/PACKET PO NR (10:45)
[2020-03-18] MEDS: ENOXAPARIN 80MG/0.8ML SYR SUBCUT SCH (12:01)
[2020-03-18] MEDS: PANTOPRAZOLE SODIUM 40 MG/VIAL IV SCH (12:01)
[2020-03-18] MEDS: INSULIN GLARGINE UD 100 UNITS/ML SYR SUBCUT SCH ×2 (12:06→22:37)
[2020-03-18] MEDS ORDERED: LORAZEPAM 2MG/ML CPJ IV PRN (12:15)
[2020-03-18] MEDS ORDERED: DEXTROSE 50% WATER 50ML SYRINGE IV ONE (12:27)
[2020-03-18] MEDS ORDERED: POTASSIUM CHLORIDE INJ 40 MEQ in DEXT 5% WATER 250 ML IV NR (12:30)
[2020-03-18] MEDS ORDERED: DOCUSATE SODIUM SUGAR FREE 100MG/10ML UDC NG SCH (15:00)
[2020-03-18] MEDS: PIPERACILLIN/TAZOBACTAM 3.375 G in DEXT 5% WATER 100 ML IV SCH ×2 (15:48→20:38)
[2020-03-18] MEDS: DOCUSATE SODIUM SUGAR FREE 100MG/10ML UDC NG PRN (17:06)
[2020-03-18] MEDS: ACETAMINOPHEN 325MG TABLET PO PRN (17:08)
[2020-03-18] MEDS ORDERED: ENOXAPARIN 80MG/0.8ML SYR SUBCUT SCH (21:00)
[2020-03-19] VITALS (82 sets, daily range): BP systolic 69–197; BP diastolic 38–124
[2020-03-19] MEDS: ALBUTEROL 6.7GM HFA INHALER ORI SCH ×5 (00:05→20:10)
[2020-03-19] MEDS: PIPERACILLIN/TAZOBACTAM 3.375 G in DEXT 5% WATER 100 ML IV SCH ×4 (03:09→22:08)
[2020-03-19] MEDS: SODIUM CHLORIDE 0.9% 1,000 ML IV SCH ×2 (03:11→23:42)
[2020-03-19] MEDS: ACETAMINOPHEN 325MG TABLET PO PRN ×3 (03:23→16:29)
[2020-03-19] MEDS: BLOOD SUGAR DIAGNOSTIC STRIP TEST SCH ×4 (06:19→21:00)
[2020-03-19] MEDS: INSULIN LISPRO 100 UNITS/ML SUBCUT SCH ×4 (06:28→21:00)
[2020-03-19] MEDS: PANTOPRAZOLE SODIUM 40 MG/VIAL IV SCH (09:16)
[2020-03-19] MEDS ORDERED: LORAZEPAM 2MG/ML CPJ IV PRN (10:15)
[2020-03-19] MEDS ORDERED: MORPHINE SULFATE 2 MG/ML CPJ (NOT FOR IM USE) IV PRN (10:15)
[2020-03-19] MEDS: INSULIN GLARGINE UD 100 UNITS/ML SYR SUBCUT SCH ×2 (10:22→22:09)
[2020-03-19] MEDS: CLONIDINE 0.1MG TABLET PO PRN (10:34)
[2020-03-19 10:53] LABS: BG BASE EXCESS 1.3 mmol/L (-2.0-2.0); BG CARBOXYHEMOGLOBIN 0.3 % (0.5-1.5); BG DEOXYHEMOGLOBIN 0.9 % (0.0-5.0); BG FRACTION INSPIRED OXYGEN 100; BG HCO3 ACT 27.3 mmol/L (22.0-26.0); BG METHEMOGLOBIN 0.4 % (0.0-1.5); BG OXYGEN SATURATION 99.1 % (92.0-98.5); BG OXYHEMOGLOBIN 98.4 % (94.0-97.0); BG PCO2 48.2 mmHg (35.0-45.0); BG PH 7.371 (7.350-7.450); BG PO2 441.7 mmHg (75.0-100.0); BG SAMPLE SITE RIGHT RADIAL; BG TIDAL VOLUME(mL) 450 mL; BG TOTAL HEMOGLOBIN 14.9 g/dL (12.0-18.0); BG VENT MODE VENT - PRVC; BG VENT RATE 16 set
[2020-03-19 13:06] LABS: CHLORIDE 97 mEq/L (98-107)
[2020-03-19 13:13] LABS: BASOPHILS % 0.4 % (0.0-2.0); EOSINOPHILS % 0.1 % (0.0-5.0); HEMATOCRIT. 40.3 % (42.0-52.0); HEMOGLOBIN. 13.7 g/dL (14.0-18.0); LYMPHOCYTES % 9.3 % (20.0-50.0); MEAN CORPUSCULAR HEMOGLOBIN 29.8 pg (28.0-32.0); MEAN CORPUSCULAR VOLUME 87.6 fL (80.0-94.0); MEAN PLATELET VOLUME 9.4 fl (7.4-10.4); MONOCYTES % 7.1 % (2.0-8.0); NEUTROPHILS % 83.1 % (40.0-76.0); PLATELET 289 x1000/uL (130-400); RED CELL DISTRIBUTION WIDTH 13.2 % (11.6-14.6)
[2020-03-19] MEDS: PROPOFOL 10MG/ML 100ML 100 ML IV PRN (15:29)
[2020-03-19] MEDS ORDERED: PHENYLEPHRINE 20 MG in DEXT 5% WATER 248 ML IV PRN (17:30)
[2020-03-19] MEDS ORDERED: PHENYLEPHRINE 40 MG in DEXT 5% WATER 496 ML IV PRN (20:30)
[2020-03-19] MEDS: PHENYLEPHRINE 80 MG in DEXT 5% WATER 492 ML IV PRN (21:14)
[2020-03-19] MEDS ORDERED: MANNITOL 20% (20GM/100ML) BAG 500ML PREMIX IV ONE ×2 (21:45→23:30)
[2020-03-19] MEDS ORDERED: MANNITOL 20% 250 ML IV SCH (21:45)
[2020-03-19] MEDS: LEVETIRACETAM 500MG PREMIX 100 ML IV SCH (22:08)
[2020-03-19] MEDS ORDERED: MANNITOL 20% 100 ML IV NR (23:27)
[2020-03-19] MEDS: DEXAMETHASONE 4MG/ML 1ML VIAL IV SCH (23:47)
[2020-03-20] VITALS (115 sets, daily range): BP systolic -7–176; BP diastolic -11–116
[2020-03-20] MEDS: ALBUTEROL 6.7GM HFA INHALER ORI SCH ×5 (00:15→20:15)
[2020-03-20] MEDS: PIPERACILLIN/TAZOBACTAM 3.375 G in DEXT 5% WATER 100 ML IV SCH ×4 (03:47→21:58)
[2020-03-20 06:00] LABS: HEMATOCRIT. 40.6 % (42.0-52.0); HEMOGLOBIN. 13.9 g/dL (14.0-18.0); MEAN CORPUSCULAR HEMOGLOBIN 29.9 pg (28.0-32.0); MEAN CORPUSCULAR VOLUME 87.5 fL (80.0-94.0); MEAN PLATELET VOLUME 8.7 fl (7.4-10.4); PLATELET 304 x1000/uL (130-400); RED BLOOD CELL COUNT 4.64 mill/uL (4.7-6.1); RED CELL DISTRIBUTION WIDTH 13.3 % (11.6-14.6)
[2020-03-20 06:08] LABS: CHLORIDE 100 mEq/L (98-107)
[2020-03-20 06:13] LABS: PHOSPHORUS 4.3 mg/dL (2.5-4.9)
[2020-03-20] MEDS: DEXAMETHASONE 4MG/ML 1ML VIAL IV SCH ×4 (06:48→23:34)
[2020-03-20] MEDS: INSULIN LISPRO 100 UNITS/ML SUBCUT SCH ×4 (06:48→22:26)
[2020-03-20] MEDS: BLOOD SUGAR DIAGNOSTIC STRIP TEST SCH ×4 (06:48→21:59)
[2020-03-20] MEDS: PROPOFOL 10MG/ML 100ML 100 ML IV PRN (06:49)
[2020-03-20] MEDS: PANTOPRAZOLE SODIUM 40 MG/VIAL IV SCH (08:04)
[2020-03-20] MEDS: LEVETIRACETAM 500MG PREMIX 100 ML IV SCH ×2 (08:04→21:58)
[2020-03-20 08:27] LABS: BG BASE EXCESS 0.8 mmol/L (-2.0-2.0); BG CARBOXYHEMOGLOBIN 0.8 % (0.5-1.5); BG DEOXYHEMOGLOBIN 2.2 % (0.0-5.0); BG FRACTION INSPIRED OXYGEN 40; BG HCO3 ACT 23.2 mmol/L (22.0-26.0); BG METHEMOGLOBIN 0.1 % (0.0-1.5); BG OXYGEN SATURATION 97.8 % (92.0-98.5); BG OXYHEMOGLOBIN 96.9 % (94.0-97.0); BG PCO2 31.3 mmHg (35.0-45.0); BG PH 7.488 (7.350-7.450); BG PO2 99.3 mmHg (75.0-100.0); BG SAMPLE SITE RIGHT RADIAL; BG TIDAL VOLUME(mL) 450 mL; BG TOTAL HEMOGLOBIN 14.8 g/dL (12.0-18.0); BG VENT MODE PRVC; BG VENT RATE 16 set
[2020-03-20 09:01] LABS: PLATELET ESTIMATE NORMAL
[2020-03-20 09:58] LABS: INR 1.1; PARTIAL THROMBOPLASTIN TIME 30.5 sec (23.4-31.0); PROTHROMBIN TIME 11.4 sec (9.6-11.0)
[2020-03-20] MEDS: INSULIN GLARGINE UD 100 UNITS/ML SYR SUBCUT SCH ×2 (10:30→21:59)
[2020-03-20] MEDS ORDERED: BACITRACIN 15GM TUBE TOP ONE ×2 (11:18→14:35)
[2020-03-20] MEDS ORDERED: BACITRACIN 50,000 UNITS/VIAL ONE (11:19)
[2020-03-20] MEDS ORDERED: LIDOCAINE HCL/EPINEPHRINE 1%-EPI 1:100,000 20 ML VIAL ONE (11:19)
[2020-03-20] MEDS ORDERED: THROMBIN (BOVINE) 5000 UNITS/VIAL TOP ONE (11:19)
[2020-03-20] MEDS ORDERED: PROPOFOL 10MG/ML 100ML 100 ML IV PRN (11:30)
[2020-03-20] MEDS: ACETAMINOPHEN 325MG TABLET PO PRN (11:41)
[2020-03-20] MEDS: CEFAZOLIN 1000MG PREMIX 50 ML IV SCH ×2 (14:00→22:27)
[2020-03-20] MEDS ORDERED: CEFAZOLIN SODIUM 1000MG/VIAL IV SCH (14:00)
[2020-03-20] MEDS ORDERED: SKIN ADHESIVE 0.7 GM EA TOP ONE (14:22)
[2020-03-20] MEDS: MORPHINE SULFATE 4 MG/ML CPJ (NOT FOR IM USE) IV PRN ×3 (15:19→23:35)
[2020-03-20] MEDS: NICARDIPINE 100 MG in SODIUM CHLORIDE 0.9% 60 ML IV PRN (15:38)
[2020-03-20] MEDS: SODIUM CHLORIDE 0.9% 1,000 ML IV SCH (21:58)
[2020-03-21] VITALS (111 sets, daily range): BP systolic -9–169; BP diastolic -11–113
[2020-03-21] MEDS: ALBUTEROL 6.7GM HFA INHALER ORI SCH ×5 (00:40→12:00)
[2020-03-21] MEDS: PIPERACILLIN/TAZOBACTAM 3.375 G in DEXT 5% WATER 100 ML IV SCH ×4 (03:34→20:07)
[2020-03-21 05:26] LABS: HEMATOCRIT. 36.7 % (42.0-52.0); HEMOGLOBIN. 12.5 g/dL (14.0-18.0); MEAN CORPUSCULAR HEMOGLOBIN 29.8 pg (28.0-32.0); MEAN CORPUSCULAR VOLUME 87.4 fL (80.0-94.0); MEAN PLATELET VOLUME 9.2 fl (7.4-10.4); PLATELET 248 x1000/uL (130-400); RED CELL DISTRIBUTION WIDTH 13.2 % (11.6-14.6)
[2020-03-21 05:32] LABS: CHLORIDE 104 mEq/L (98-107)
[2020-03-21] MEDS: BLOOD SUGAR DIAGNOSTIC STRIP TEST SCH ×4 (06:29→20:07)
[2020-03-21] MEDS: DEXAMETHASONE 4MG/ML 1ML VIAL IV SCH ×4 (06:29→23:57)
[2020-03-21] MEDS: INSULIN LISPRO 100 UNITS/ML SUBCUT SCH ×4 (06:29→20:24)
[2020-03-21] MEDS: CEFAZOLIN 1000MG PREMIX 50 ML IV SCH ×2 (06:29→14:27)
[2020-03-21 08:07] LABS: BG BASE EXCESS -0.1 mmol/L (-2.0-2.0); BG CARBOXYHEMOGLOBIN 0.3 % (0.5-1.5); BG DEOXYHEMOGLOBIN 0.9 % (0.0-5.0); BG FRACTION INSPIRED OXYGEN 100; BG HCO3 ACT 23.6 mmol/L (22.0-26.0); BG METHEMOGLOBIN 0.3 % (0.0-1.5); BG OXYGEN SATURATION 99.1 % (92.0-98.5); BG OXYHEMOGLOBIN 98.5 % (94.0-97.0); BG PCO2 35.5 mmHg (35.0-45.0); BG PH 7.441 (7.350-7.450); BG PO2 350.3 mmHg (75.0-100.0); BG SAMPLE SITE RIGHT RADIAL; BG TIDAL VOLUME(mL) 450 mL; BG TOTAL HEMOGLOBIN 12.5 g/dL (12.0-18.0); BG VENT MODE VENT - A/C; BG VENT RATE 14 set
[2020-03-21 08:24] LABS: PLATELET ESTIMATE NORMAL
[2020-03-21] MEDS: MORPHINE SULFATE 4 MG/ML CPJ (NOT FOR IM USE) IV PRN ×3 (08:45→14:25)
[2020-03-21] MEDS ORDERED: MORPHINE SULFATE 2 MG/ML CPJ (NOT FOR IM USE) IV PRN (10:15)
[2020-03-21] MEDS: FENTANYL CITRATE/PF 1,000 MCG in SODIUM CHLORIDE 0.9% 80 ML IV PRN ×3 (10:47→21:46)
[2020-03-21] MEDS ORDERED: LIDOCAINE HCL 1% 20ML VIAL (Pyxis) INJ ONE (11:08)
[2020-03-21] MEDS: PANTOPRAZOLE SODIUM 40 MG/VIAL IV SCH (11:28)
[2020-03-21] MEDS: LEVETIRACETAM 500MG PREMIX 100 ML IV SCH ×2 (11:28→20:07)
[2020-03-21] MEDS: INSULIN GLARGINE UD 100 UNITS/ML SYR SUBCUT SCH ×2 (11:46→21:12)
[2020-03-21] MEDS: MIDAZOLAM HCL 100 MG in DEXT 5% WATER 80 ML IV PRN (12:31)
[2020-03-21] MEDS: SODIUM CHLORIDE 0.9% 1,000 ML IV SCH (16:42)
[2020-03-22] VITALS (101 sets, daily range): BP systolic -18–193; BP diastolic -18–116
[2020-03-22] MEDS: PIPERACILLIN/TAZOBACTAM 3.375 G in DEXT 5% WATER 100 ML IV SCH ×4 (03:24→20:48)
[2020-03-22 05:51] LABS: HEMATOCRIT. 39.2 % (42.0-52.0); HEMOGLOBIN. 13.1 g/dL (14.0-18.0); MEAN CORPUSCULAR HEMOGLOBIN 29.9 pg (28.0-32.0); MEAN CORPUSCULAR VOLUME 89.2 fL (80.0-94.0); MEAN PLATELET VOLUME 9.6 fl (7.4-10.4); PLATELET 264 x1000/uL (130-400); RED BLOOD CELL COUNT 4.39 mill/uL (4.7-6.1); RED CELL DISTRIBUTION WIDTH 13.3 % (11.6-14.6)
[2020-03-22] MEDS: INSULIN LISPRO 100 UNITS/ML SUBCUT SCH ×4 (05:54→20:47)
[2020-03-22] MEDS: DEXAMETHASONE 4MG/ML 1ML VIAL IV SCH ×4 (05:54→23:50)
[2020-03-22] MEDS: BLOOD SUGAR DIAGNOSTIC STRIP TEST SCH ×4 (05:54→20:47)
[2020-03-22 06:04] LABS: CHLORIDE 103 mEq/L (98-107)
[2020-03-22] MEDS: LEVETIRACETAM 500MG PREMIX 100 ML IV SCH ×2 (08:02→20:48)
[2020-03-22] MEDS: PANTOPRAZOLE SODIUM 40 MG/VIAL IV SCH (08:02)
[2020-03-22 08:24] LABS: PLATELET ESTIMATE NORMAL
[2020-03-22] MEDS: FENTANYL CITRATE/PF 1,000 MCG in SODIUM CHLORIDE 0.9% 80 ML IV PRN ×2 (08:31→19:10)
[2020-03-22] MEDS: ALBUTEROL 6.7GM HFA INHALER ORI SCH ×5 (08:55→21:38)
[2020-03-22 09:11] LABS: BG BASE EXCESS 1.2 mmol/L (-2.0-2.0); BG CARBOXYHEMOGLOBIN 0.3 % (0.5-1.5); BG DEOXYHEMOGLOBIN 5.6 % (0.0-5.0); BG FRACTION INSPIRED OXYGEN 40; BG OXYGEN SATURATION 94.4 % (92.0-98.5); BG OXYHEMOGLOBIN 94.1 % (94.0-97.0); BG PO2 73.2 mmHg (75.0-100.0); BG SAMPLE SITE RIGHT BRACHIAL; BG TIDAL VOLUME(mL) 450 mL; BG TOTAL HEMOGLOBIN 12.7 g/dL (12.0-18.0); BG VENT MODE VENT - A/C; BG VENT RATE 14 set
[2020-03-22] MEDS: INSULIN GLARGINE UD 100 UNITS/ML SYR SUBCUT SCH ×2 (10:37→22:00)
[2020-03-22] MEDS: SODIUM CHLORIDE 0.9% 1,000 ML IV SCH (10:40)
[2020-03-22] MEDS: MORPHINE SULFATE 4 MG/ML CPJ (NOT FOR IM USE) IV PRN (11:56)
[2020-03-22] MEDS: DEXTROSE 50% WATER 50ML SYRINGE IV PRN ×2 (15:40→20:33)
[2020-03-23] VITALS (101 sets, daily range): BP systolic -6–155; BP diastolic -6–90
[2020-03-23] MEDS: ALBUTEROL 6.7GM HFA INHALER ORI SCH ×6 (00:45→20:55)
[2020-03-23] MEDS: PIPERACILLIN/TAZOBACTAM 3.375 G in DEXT 5% WATER 100 ML IV SCH ×4 (02:21→20:44)
[2020-03-23] MEDS: MIDAZOLAM HCL 100 MG in DEXT 5% WATER 80 ML IV PRN (02:44)
[2020-03-23] MEDS: FENTANYL CITRATE/PF 1,000 MCG in SODIUM CHLORIDE 0.9% 80 ML IV PRN ×3 (04:23→22:26)
[2020-03-23 05:28] LABS: HEMATOCRIT. 32.5 % (42.0-52.0); HEMOGLOBIN. 11.1 g/dL (14.0-18.0); MEAN CORPUSCULAR HEMOGLOBIN 29.9 pg (28.0-32.0); MEAN CORPUSCULAR VOLUME 87.7 fL (80.0-94.0); MEAN PLATELET VOLUME 8.8 fl (7.4-10.4); PLATELET 304 x1000/uL (130-400); RED BLOOD CELL COUNT 3.71 mill/uL (4.7-6.1); RED CELL DISTRIBUTION WIDTH 13.3 % (11.6-14.6)
[2020-03-23 05:30] LABS: CHLORIDE 105 mEq/L (98-107)
[2020-03-23] MEDS: BLOOD SUGAR DIAGNOSTIC STRIP TEST SCH ×4 (05:33→20:45)
[2020-03-23] MEDS: DEXAMETHASONE 4MG/ML 1ML VIAL IV SCH ×3 (05:33→17:08)
[2020-03-23] MEDS: INSULIN LISPRO 100 UNITS/ML SUBCUT SCH ×4 (07:00→20:44)
[2020-03-23] MEDS: SODIUM CHLORIDE 0.9% 1,000 ML IV SCH (07:44)
[2020-03-23] MEDS: PANTOPRAZOLE SODIUM 40 MG/VIAL IV SCH (07:48)
[2020-03-23 08:12] LABS: BG BASE EXCESS -3.1 mmol/L (-2.0-2.0); BG CARBOXYHEMOGLOBIN 0.3 % (0.5-1.5); BG DEOXYHEMOGLOBIN 3.9 % (0.0-5.0); BG FRACTION INSPIRED OXYGEN 40; BG HCO3 ACT 20.7 mmol/L (22.0-26.0); BG METHEMOGLOBIN 0.2 % (0.0-1.5); BG OXYGEN SATURATION 96.1 % (92.0-98.5); BG OXYHEMOGLOBIN 95.6 % (94.0-97.0); BG PCO2 33.2 mmHg (35.0-45.0); BG PH 7.413 (7.350-7.450); BG PO2 78.4 mmHg (75.0-100.0); BG SAMPLE SITE RIGHT RADIAL; BG TIDAL VOLUME(mL) 450 mL; BG TOTAL HEMOGLOBIN 12.5 g/dL (12.0-18.0); BG VENT MODE VENT- PRVC; BG VENT RATE 14 set
[2020-03-23 08:23] LABS: PLATELET ESTIMATE NORMAL
[2020-03-23] MEDS: INSULIN GLARGINE UD 100 UNITS/ML SYR SUBCUT SCH (10:00)
[2020-03-23] MEDS: LEVETIRACETAM 500MG PREMIX 100 ML IV SCH ×2 (12:00→21:37)
[2020-03-23] MEDS ORDERED: LIDOCAINE HCL 1% 20ML VIAL (Pyxis) INJ ONE (13:28)
[2020-03-23] MEDS: PHENYLEPHRINE 80 MG in DEXT 5% WATER 492 ML IV PRN (20:52)
[2020-03-24] VITALS (100 sets, daily range): BP systolic -22–298; BP diastolic -22–298
[2020-03-24] MEDS: ALBUTEROL 6.7GM HFA INHALER ORI SCH ×6 (00:39→21:00)
[2020-03-24] MEDS: MIDAZOLAM HCL 100 MG in DEXT 5% WATER 80 ML IV PRN (01:23)
[2020-03-24] MEDS: DEXAMETHASONE 4MG/ML 1ML VIAL IV SCH ×4 (03:09→17:43)
[2020-03-24] MEDS: SODIUM CHLORIDE 0.9% 1,000 ML IV SCH ×2 (05:30→08:01)
[2020-03-24 05:41] LABS: BASOPHILS % 0.1 % (0.0-2.0); HEMATOCRIT. 35.8 % (42.0-52.0); HEMOGLOBIN. 11.9 g/dL (14.0-18.0); LYMPHOCYTES % 7.2 % (20.0-50.0); MEAN CORPUSCULAR HEMOGLOBIN 29.4 pg (28.0-32.0); MEAN CORPUSCULAR VOLUME 88.5 fL (80.0-94.0); MEAN PLATELET VOLUME 9.1 fl (7.4-10.4); MONOCYTES % 7.9 % (2.0-8.0); NEUTROPHILS % 84.8 % (40.0-76.0); PLATELET 285 x1000/uL (130-400); RED BLOOD CELL COUNT 4.04 mill/uL (4.7-6.1); RED CELL DISTRIBUTION WIDTH 13.2 % (11.6-14.6)
[2020-03-24 05:55] LABS: CHLORIDE 101 mEq/L (98-107)
[2020-03-24] MEDS: BLOOD SUGAR DIAGNOSTIC STRIP TEST SCH ×4 (06:05→21:37)
[2020-03-24] MEDS: INSULIN LISPRO 100 UNITS/ML SUBCUT SCH ×4 (06:15→21:47)
[2020-03-24] MEDS: FENTANYL CITRATE/PF 1,000 MCG in SODIUM CHLORIDE 0.9% 80 ML IV PRN ×4 (06:16→22:26)
[2020-03-24] MEDS: LEVETIRACETAM 500MG PREMIX 100 ML IV SCH ×2 (08:08→21:48)
[2020-03-24] MEDS: PANTOPRAZOLE SODIUM 40 MG/VIAL IV SCH (08:08)
[2020-03-24 08:56] LABS: BG BASE EXCESS 1.9 mmol/L (-2.0-2.0); BG CARBOXYHEMOGLOBIN 0.3 % (0.5-1.5); BG DEOXYHEMOGLOBIN 1.1 % (0.0-5.0); BG FRACTION INSPIRED OXYGEN 40; BG HCO3 ACT 23.9 mmol/L (22.0-26.0); BG METHEMOGLOBIN 0.1 % (0.0-1.5); BG OXYGEN SATURATION 98.9 % (92.0-98.5); BG OXYHEMOGLOBIN 98.5 % (94.0-97.0); BG PCO2 28.8 mmHg (35.0-45.0); BG PH 7.536 (7.350-7.450); BG PO2 142.3 mmHg (75.0-100.0); BG SAMPLE SITE RIGHT RADIAL; BG TOTAL HEMOGLOBIN 11.4 g/dL (12.0-18.0)
[2020-03-24 09:03] LABS: BG VENT MODE VENT- PRVC
[2020-03-24 09:04] LABS: BG TIDAL VOLUME(mL) 450 mL; BG VENT RATE 14 set
[2020-03-24 09:05] LABS: BG PEEP (cmH2O) 5 cmH2O
[2020-03-24] MEDS ORDERED: SODIUM POLYSTYRENE SULFONATE 15 G/60 ML BOT PO NR (09:15)
[2020-03-24] MEDS: CLONIDINE 0.1MG TABLET PO PRN (17:56)
[2020-03-24] MEDS: INSULIN GLARGINE UD 100 UNITS/ML SYR SUBCUT SCH (21:57)
[2020-03-25] VITALS (60 sets, daily range): BP systolic 83–200; BP diastolic 47–147
[2020-03-25] MEDS: ALBUTEROL 6.7GM HFA INHALER ORI SCH ×6 (00:15→19:45)
[2020-03-25] MEDS: DEXAMETHASONE 4MG/ML 1ML VIAL IV SCH ×5 (02:09→23:59)
[2020-03-25] MEDS: FENTANYL CITRATE/PF 1,000 MCG in SODIUM CHLORIDE 0.9% 80 ML IV PRN ×4 (02:13→13:02)
[2020-03-25 04:54] LABS: CHLORIDE 103 mEq/L (98-107)
[2020-03-25 05:16] LABS: HEMATOCRIT. 35.3 % (42.0-52.0); HEMOGLOBIN. 11.7 g/dL (14.0-18.0); MEAN CORPUSCULAR HEMOGLOBIN 29.7 pg (28.0-32.0); MEAN CORPUSCULAR VOLUME 89.3 fL (80.0-94.0); MEAN PLATELET VOLUME 8.5 fl (7.4-10.4); PLATELET 293 x1000/uL (130-400); RED BLOOD CELL COUNT 3.96 mill/uL (4.7-6.1); RED CELL DISTRIBUTION WIDTH 13.2 % (11.6-14.6)
[2020-03-25] MEDS: MIDAZOLAM HCL 100 MG in DEXT 5% WATER 80 ML IV PRN (06:05)
[2020-03-25] MEDS: BLOOD SUGAR DIAGNOSTIC STRIP TEST SCH ×4 (06:30→22:30)
[2020-03-25] MEDS: INSULIN LISPRO 100 UNITS/ML SUBCUT SCH ×3 (06:38→18:00)
[2020-03-25 07:08] LABS: PLATELET ESTIMATE NORMAL
[2020-03-25 07:38] LABS: BG CARBOXYHEMOGLOBIN 0.3 % (0.5-1.5); BG DEOXYHEMOGLOBIN 5.1 % (0.0-5.0); BG FRACTION INSPIRED OXYGEN 40; BG METHEMOGLOBIN 0.3 % (0.0-1.5); BG OXYGEN SATURATION 94.9 % (92.0-98.5); BG OXYHEMOGLOBIN 94.3 % (94.0-97.0); BG PCO2 40.5 mmHg (35.0-45.0); BG PH 7.473 (7.350-7.450); BG PO2 71.6 mmHg (75.0-100.0); BG SAMPLE SITE RIGHT BRACHIAL; BG TIDAL VOLUME(mL) 500 mL; BG TOTAL HEMOGLOBIN 12.2 g/dL (12.0-18.0); BG VENT MODE VENT - A/C; BG VENT RATE 12 set
[2020-03-25] MEDS: PANTOPRAZOLE SODIUM 40 MG/VIAL IV SCH (08:51)
[2020-03-25] MEDS: LEVETIRACETAM 500MG PREMIX 100 ML IV SCH ×2 (08:51→21:33)
[2020-03-25] MEDS: FENTANYL CITRATE/PF 2,500 MCG in SODIUM CHLORIDE 0.9% 200 ML IV PRN (16:54)
[2020-03-25] MEDS: MORPHINE SULFATE 4 MG/ML CPJ (NOT FOR IM USE) IV PRN (18:56)
[2020-03-25] MEDS: SODIUM CHLORIDE 0.9% 1,000 ML IV SCH (19:00)
[2020-03-25] MEDS: NICARDIPINE 100 MG in SODIUM CHLORIDE 0.9% 60 ML IV PRN (21:14)
[2020-03-26] VITALS (77 sets, daily range): BP systolic 84–181; BP diastolic 49–118
[2020-03-26] MEDS: INSULIN GLARGINE UD 100 UNITS/ML SYR SUBCUT SCH ×3 (00:01→21:33)
[2020-03-26] MEDS: INSULIN LISPRO 100 UNITS/ML SUBCUT SCH ×5 (00:02→23:56)
[2020-03-26] MEDS: ALBUTEROL 6.7GM HFA INHALER ORI SCH ×6 (00:26→20:35)
[2020-03-26] MEDS: FENTANYL CITRATE/PF 2,500 MCG in SODIUM CHLORIDE 0.9% 200 ML IV PRN ×2 (01:56→19:52)
[2020-03-26] MEDS: MIDAZOLAM HCL 100 MG in DEXT 5% WATER 80 ML IV PRN ×2 (02:21→18:53)
[2020-03-26 05:06] LABS: HEMATOCRIT. 33.4 % (42.0-52.0); HEMOGLOBIN. 11.3 g/dL (14.0-18.0); MEAN CORPUSCULAR HEMOGLOBIN 29.8 pg (28.0-32.0); MEAN CORPUSCULAR VOLUME 88.1 fL (80.0-94.0); PLATELET 275 x1000/uL (130-400); RED BLOOD CELL COUNT 3.79 mill/uL (4.7-6.1); RED CELL DISTRIBUTION WIDTH 13.3 % (11.6-14.6)
[2020-03-26 05:15] LABS: CHLORIDE 99 mEq/L (98-107)
[2020-03-26] MEDS: BLOOD SUGAR DIAGNOSTIC STRIP TEST SCH ×4 (06:15→23:56)
[2020-03-26] MEDS: DEXAMETHASONE 4MG/ML 1ML VIAL IV SCH ×4 (06:24→23:56)
[2020-03-26 07:06] LABS: PLATELET ESTIMATE NORMAL
[2020-03-26] MEDS: LEVETIRACETAM 500MG PREMIX 100 ML IV SCH ×2 (08:49→20:39)
[2020-03-26] MEDS: PANTOPRAZOLE SODIUM 40 MG/VIAL IV SCH (08:50)
[2020-03-26] MEDS ORDERED: MIDAZOLAM HCL 2 MG/2 ML VIAL ONE (10:06)
[2020-03-26] MEDS ORDERED: ROCURONIUM BROMIDE 10MG/ML VIAL 5ML IV ONE (10:06)
[2020-03-26] MEDS ORDERED: LORAZEPAM 2MG/ML CPJ IV PRN (13:45)
[2020-03-26] MEDS: SODIUM CHLORIDE 0.9% 1,000 ML IV SCH ×2 (15:00→23:57)
[2020-03-26] MEDS: MORPHINE SULFATE 2 MG/ML CPJ (NOT FOR IM USE) IV PRN (17:30)
[2020-03-27] VITALS (98 sets, daily range): BP systolic 83–169; BP diastolic 47–94
[2020-03-27] MEDS: ALBUTEROL 6.7GM HFA INHALER ORI SCH ×6 (00:50→20:57)
[2020-03-27] MEDS: FENTANYL CITRATE/PF 2,500 MCG in SODIUM CHLORIDE 0.9% 200 ML IV PRN ×2 (05:02→16:29)
[2020-03-27] MEDS: BLOOD SUGAR DIAGNOSTIC STRIP TEST SCH ×4 (05:50→23:53)
[2020-03-27] MEDS: INSULIN LISPRO 100 UNITS/ML SUBCUT SCH ×4 (06:08→23:55)
[2020-03-27] MEDS: DEXAMETHASONE 4MG/ML 1ML VIAL IV SCH ×2 (06:08→17:58)
[2020-03-27 06:10] LABS: CHLORIDE 97 mEq/L (98-107)
[2020-03-27 06:19] LABS: HEMATOCRIT. 37.5 % (42.0-52.0); HEMOGLOBIN. 12.3 g/dL (14.0-18.0); MEAN CORPUSCULAR HEMOGLOBIN 29.3 pg (28.0-32.0); MEAN CORPUSCULAR VOLUME 89.3 fL (80.0-94.0); MEAN PLATELET VOLUME 8.4 fl (7.4-10.4); PLATELET 326 x1000/uL (130-400); RED CELL DISTRIBUTION WIDTH 13.3 % (11.6-14.6)
[2020-03-27] MEDS ORDERED: NOREPINEPHRINE 16 MG in DEXT 5% WATER 234 ML IV PRN (09:00)
[2020-03-27] MEDS: LEVETIRACETAM 500MG PREMIX 100 ML IV SCH ×2 (09:25→20:23)
[2020-03-27] MEDS: PANTOPRAZOLE SODIUM 40 MG/VIAL IV SCH (09:25)
[2020-03-27 09:52] LABS: PLATELET ESTIMATE NORMAL
[2020-03-27] MEDS: INSULIN GLARGINE UD 100 UNITS/ML SYR SUBCUT SCH ×2 (10:43→23:55)
[2020-03-27] MEDS: MIDAZOLAM HCL 100 MG in DEXT 5% WATER 80 ML IV PRN (13:54)
[2020-03-27] MEDS: PHENYLEPHRINE 80 MG in DEXT 5% WATER 492 ML IV PRN (13:55)
[2020-03-27] MEDS: SODIUM CHLORIDE 0.9% 1,000 ML IV SCH (19:00)
[2020-03-28] VITALS (94 sets, daily range): BP systolic 89–182; BP diastolic 51–110
[2020-03-28] MEDS: ALBUTEROL 6.7GM HFA INHALER ORI SCH ×5 (00:23→20:15)
[2020-03-28] MEDS: FENTANYL CITRATE/PF 2,500 MCG in SODIUM CHLORIDE 0.9% 200 ML IV PRN ×2 (02:12→13:28)
[2020-03-28] MEDS ORDERED: CEFAZOLIN 1000MG PREMIX 50 ML IV NR (05:00)
[2020-03-28] MEDS: DEXAMETHASONE 4MG/ML 1ML VIAL IV SCH (05:12)
[2020-03-28 05:46] LABS: PROTHROMBIN TIME 11.1 sec (9.6-11.0)
[2020-03-28 05:48] LABS: HEMATOCRIT. 33.4 % (42.0-52.0); HEMOGLOBIN. 11.4 g/dL (14.0-18.0); PLATELET 303 x1000/uL (130-400); RED CELL DISTRIBUTION WIDTH 13.1 % (11.6-14.6)
[2020-03-28 05:51] LABS: CHLORIDE 99 mEq/L (98-107)
[2020-03-28] MEDS: INSULIN LISPRO 100 UNITS/ML SUBCUT SCH ×3 (06:00→18:00)
[2020-03-28] MEDS: BLOOD SUGAR DIAGNOSTIC STRIP TEST SCH ×4 (06:00→23:51)
[2020-03-28 06:04] LABS: PHOSPHORUS 2.9 mg/dL (2.5-4.9)
[2020-03-28] MEDS: PANTOPRAZOLE SODIUM 40 MG/VIAL IV SCH (08:11)
[2020-03-28] MEDS: LEVETIRACETAM 500MG PREMIX 100 ML IV SCH ×2 (08:11→20:30)
[2020-03-28] MEDS: SODIUM CHLORIDE 0.9% 1,000 ML IV SCH (08:12)
[2020-03-28 08:36] LABS: BG BASE EXCESS 6.8 mmol/L (-2.0-2.0); BG CARBOXYHEMOGLOBIN 0.4 % (0.5-1.5); BG DEOXYHEMOGLOBIN 2.3 % (0.0-5.0); BG HCO3 ACT 30.9 mmol/L (22.0-26.0); BG METHEMOGLOBIN 0.3 % (0.0-1.5); BG OXYGEN SATURATION 97.7 % (92.0-98.5); BG PH 7.484 (7.350-7.450); BG PO2 107.9 mmHg (75.0-100.0); BG SAMPLE SITE RIGHT RADIAL; BG TIDAL VOLUME(mL) 450 mL; BG TOTAL HEMOGLOBIN 12.7 g/dL (12.0-18.0); BG VENT MODE VENT - SIMV; BG VENT RATE 8 set
[2020-03-28] MEDS: INSULIN GLARGINE UD 100 UNITS/ML SYR SUBCUT SCH ×2 (09:37→22:43)
[2020-03-28] MEDS: MIDAZOLAM HCL 100 MG in DEXT 5% WATER 80 ML IV PRN (09:38)
[2020-03-28 11:21] LABS: PLATELET ESTIMATE NORMAL
[2020-03-28] MEDS ORDERED: FENTANYL CITRATE/PF 50MCG/ML 2ML VIAL ONE (12:11)
[2020-03-28] MEDS ORDERED: MIDAZOLAM HCL 5 MG/5 ML VIAL ONE (12:11)
[2020-03-28] MEDS: CLONIDINE 0.1MG TABLET PO PRN (20:30)
[2020-03-29] VITALS (103 sets, daily range): BP systolic 76–197; BP diastolic 14–116
[2020-03-29] MEDS: INSULIN LISPRO 100 UNITS/ML SUBCUT SCH ×4 (00:01→17:42)
[2020-03-29] MEDS: ALBUTEROL 6.7GM HFA INHALER ORI SCH ×4 (00:18→20:20)
[2020-03-29] MEDS: MORPHINE SULFATE 2 MG/ML CPJ (NOT FOR IM USE) IV PRN (00:53)
[2020-03-29] MEDS: CLONIDINE 0.1MG TABLET PO PRN ×2 (01:44→17:41)
[2020-03-29] MEDS: NICARDIPINE 100 MG in SODIUM CHLORIDE 0.9% 60 ML IV PRN ×2 (02:20→19:39)
[2020-03-29] MEDS: ACETAMINOPHEN 325MG TABLET PO PRN (03:22)
[2020-03-29] MEDS: SODIUM CHLORIDE 0.9% 1,000 ML IV SCH ×2 (03:22→21:35)
[2020-03-29 04:52] LABS: BASOPHILS % 0.1 % (0.0-2.0); HEMATOCRIT. 37.7 % (42.0-52.0); HEMOGLOBIN. 12.7 g/dL (14.0-18.0); LYMPHOCYTES % 8.8 % (20.0-50.0); MEAN CORPUSCULAR HEMOGLOBIN 29.6 pg (28.0-32.0); MEAN CORPUSCULAR VOLUME 87.6 fL (80.0-94.0); MEAN PLATELET VOLUME 7.9 fl (7.4-10.4); NEUTROPHILS % 88.1 % (40.0-76.0); PLATELET 347 x1000/uL (130-400); RED CELL DISTRIBUTION WIDTH 13.5 % (11.6-14.6)
[2020-03-29 05:19] LABS: CHLORIDE 99 mEq/L (98-107)
[2020-03-29] MEDS: FENTANYL CITRATE/PF 2,500 MCG in SODIUM CHLORIDE 0.9% 200 ML IV PRN ×3 (06:02→23:09)
[2020-03-29] MEDS: BLOOD SUGAR DIAGNOSTIC STRIP TEST SCH ×3 (06:20→17:42)
[2020-03-29] MEDS: DEXTROSE 50% WATER 50ML SYRINGE IV PRN (06:22)
[2020-03-29] MEDS: PANTOPRAZOLE SODIUM 40 MG/VIAL IV SCH (08:19)
[2020-03-29] MEDS: LEVETIRACETAM 500MG PREMIX 100 ML IV SCH ×2 (08:19→21:34)
[2020-03-29] MEDS: INSULIN GLARGINE UD 100 UNITS/ML SYR SUBCUT SCH ×2 (10:00→22:00)
[2020-03-29] MEDS: DOCUSATE SODIUM SUGAR FREE 100MG/10ML UDC NG PRN ×2 (12:34→17:41)
[2020-03-29] MEDS: MULTIVITAMINS,THER W-MINERALS TABLET PO SCH (12:34)
[2020-03-29] MEDS: QUETIAPINE FUMARATE 25MG TABLET PO SCH (21:34)
[2020-03-30] VITALS (104 sets, daily range): BP systolic 55–150; BP diastolic 22–115
[2020-03-30] MEDS: ALBUTEROL 6.7GM HFA INHALER ORI SCH
[2020-03-30] MEDS: BLOOD SUGAR DIAGNOSTIC STRIP TEST SCH ×4 (01:00→18:04)
[2020-03-30] MEDS: INSULIN LISPRO 100 UNITS/ML SUBCUT SCH ×4 (01:23→18:00)
[2020-03-30 06:02] LABS: EOSINOPHILS % 0.2 % (0.0-5.0); HEMATOCRIT. 36.2 % (42.0-52.0); HEMOGLOBIN. 12.2 g/dL (14.0-18.0); LYMPHOCYTES % 9.3 % (20.0-50.0); MEAN CORPUSCULAR HEMOGLOBIN 29.5 pg (28.0-32.0); MEAN PLATELET VOLUME 8.1 fl (7.4-10.4); MONOCYTES % 3.2 % (2.0-8.0); NEUTROPHILS % 87.3 % (40.0-76.0); PLATELET 321 x1000/uL (130-400); RED BLOOD CELL COUNT 4.12 mill/uL (4.7-6.1); RED CELL DISTRIBUTION WIDTH 13.7 % (11.6-14.6)
[2020-03-30 06:05] LABS: CHLORIDE 99 mEq/L (98-107)
[2020-03-30] MEDS: ACETAMINOPHEN 325MG TABLET PO PRN (06:09)
[2020-03-30] MEDS: MULTIVITAMINS,THER W-MINERALS TABLET PO SCH (08:40)
[2020-03-30] MEDS: PANTOPRAZOLE SODIUM 40 MG/VIAL IV SCH (08:40)
[2020-03-30] MEDS: QUETIAPINE FUMARATE 25MG TABLET PO SCH ×2 (08:40→21:27)
[2020-03-30] MEDS: LEVETIRACETAM 500MG PREMIX 100 ML IV SCH ×2 (08:41→20:50)
[2020-03-30] MEDS: INSULIN GLARGINE UD 100 UNITS/ML SYR SUBCUT SCH ×2 (10:40→22:01)
[2020-03-30] MEDS: FENTANYL CITRATE/PF 2,500 MCG in SODIUM CHLORIDE 0.9% 200 ML IV PRN (14:12)
[2020-03-30] MEDS: SODIUM CHLORIDE 0.9% 1,000 ML IV SCH (19:08)
[2020-03-30] MEDS: METOPROLOL TARTRATE 25MG TABLET PO SCH (21:27)
[2020-03-31] VITALS (142 sets, daily range): BP systolic 62–189; BP diastolic 23–110
[2020-03-31] MEDS: BLOOD SUGAR DIAGNOSTIC STRIP TEST SCH ×4 (00:13→18:00)
[2020-03-31] MEDS: ACETAMINOPHEN 325MG TABLET PO PRN ×2 (02:23→19:34)
[2020-03-31] MEDS: DEXTROSE 50% WATER 50ML SYRINGE IV PRN (05:27)
[2020-03-31 05:52] LABS: BASOPHILS % 0.1 % (0.0-2.0); EOSINOPHILS % 0.9 % (0.0-5.0); HEMATOCRIT. 34.2 % (42.0-52.0); HEMOGLOBIN. 11.7 g/dL (14.0-18.0); LYMPHOCYTES % 9.8 % (20.0-50.0); MONOCYTES % 3.5 % (2.0-8.0); NEUTROPHILS % 85.7 % (40.0-76.0); PLATELET 381 x1000/uL (130-400); RED BLOOD CELL COUNT 3.89 mill/uL (4.7-6.1); RED CELL DISTRIBUTION WIDTH 13.8 % (11.6-14.6)
[2020-03-31 05:56] LABS: CHLORIDE 105 mEq/L (98-107)
[2020-03-31] MEDS: INSULIN LISPRO 100 UNITS/ML SUBCUT SCH ×4 (05:57→18:00)
[2020-03-31] MEDS: ALBUTEROL 6.7GM HFA INHALER ORI SCH ×3 (08:59→17:32)
[2020-03-31] MEDS: MULTIVITAMINS,THER W-MINERALS TABLET PO SCH (09:00)
[2020-03-31] MEDS: METOPROLOL TARTRATE 25MG TABLET PO SCH ×2 (09:00→20:23)
[2020-03-31] MEDS: QUETIAPINE FUMARATE 25MG TABLET PO SCH ×2 (09:00→20:22)
[2020-03-31] MEDS: PANTOPRAZOLE SODIUM 40 MG/VIAL IV SCH (09:18)
[2020-03-31] MEDS: LEVETIRACETAM 500MG PREMIX 100 ML IV SCH ×2 (09:18→20:23)
[2020-03-31] MEDS: INSULIN GLARGINE UD 100 UNITS/ML SYR SUBCUT SCH ×2 (10:00→22:00)
[2020-03-31] MEDS: DEXT 5%/0.9% NACL 1,000 ML IV SCH (12:57)
[2020-04-01] VITALS (49 sets, daily range): BP systolic 92–181; BP diastolic 51–119
[2020-04-01] MEDS: ACETAMINOPHEN 325MG TABLET PO PRN (05:14)
[2020-04-01 05:29] LABS: BASOPHILS % 0.1 % (0.0-2.0); EOSINOPHILS % 1.7 % (0.0-5.0); HEMATOCRIT. 32.6 % (42.0-52.0); HEMOGLOBIN. 11.1 g/dL (14.0-18.0); LYMPHOCYTES % 11.3 % (20.0-50.0); MEAN CORPUSCULAR VOLUME 88.1 fL (80.0-94.0); MEAN PLATELET VOLUME 7.8 fl (7.4-10.4); MONOCYTES % 6.7 % (2.0-8.0); NEUTROPHILS % 80.2 % (40.0-76.0); PLATELET 430 x1000/uL (130-400)
[2020-04-01] MEDS: INSULIN LISPRO 100 UNITS/ML SUBCUT SCH ×5 (05:29→23:19)
[2020-04-01] MEDS: BLOOD SUGAR DIAGNOSTIC STRIP TEST SCH ×5 (05:30→23:19)
[2020-04-01 05:33] LABS: CHLORIDE 106 mEq/L (98-107)
[2020-04-01] MEDS: DEXT 5%/0.9% NACL 1,000 ML IV SCH (06:11)
[2020-04-01] MEDS: ALBUTEROL 6.7GM HFA INHALER ORI SCH ×5 (08:00→20:14)
[2020-04-01 09:14] LABS: BG BASE EXCESS -1.3 mmol/L (-2.0-2.0); BG CARBOXYHEMOGLOBIN 0.3 % (0.5-1.5); BG DEOXYHEMOGLOBIN 1.4 % (0.0-5.0); BG FRACTION INSPIRED OXYGEN 40; BG HCO3 ACT 21.4 mmol/L (22.0-26.0); BG METHEMOGLOBIN 0.3 % (0.0-1.5); BG OXYGEN SATURATION 98.6 % (92.0-98.5); BG PCO2 29.2 mmHg (35.0-45.0); BG PH 7.483 (7.350-7.450); BG SAMPLE SITE RIGHT RADIAL; BG TIDAL VOLUME(mL) 450 mL; BG TOTAL HEMOGLOBIN 10.8 g/dL (12.0-18.0); BG VENT MODE VENT - A/C; BG VENT RATE 12 set
[2020-04-01] MEDS: PANTOPRAZOLE SODIUM 40 MG/VIAL IV SCH (10:32)
[2020-04-01] MEDS: MULTIVITAMINS,THER W-MINERALS TABLET PO SCH (10:32)
[2020-04-01] MEDS: LEVETIRACETAM 500MG PREMIX 100 ML IV SCH ×2 (10:32→21:03)
[2020-04-01] MEDS: QUETIAPINE FUMARATE 25MG TABLET PO SCH (10:32)
[2020-04-01] MEDS: METOPROLOL TARTRATE 25MG TABLET PO SCH ×2 (10:35→21:00)
[2020-04-01] MEDS: INSULIN GLARGINE UD 100 UNITS/ML SYR SUBCUT SCH ×2 (10:37→21:05)
[2020-04-01] MEDS ORDERED: NA PHOS,M-B/NA PHOS,DI-BA ENEMA 118ML PR PRN (12:15)
[2020-04-01] MEDS: DOCUSATE SODIUM SUGAR FREE 100MG/10ML UDC NG SCH ×2 (15:28→16:46)
[2020-04-01] MEDS: METOCLOPRAMIDE HCL 10MG/2ML VIAL IV SCH ×2 (17:30→23:19)
[2020-04-01] MEDS: QUETIAPINE FUMARATE 50MG TABLET PO SCH (21:03)
[2020-04-02] VITALS (24 sets, daily range): BP systolic 94–145; BP diastolic 53–87
[2020-04-02] MEDS: ALBUTEROL 6.7GM HFA INHALER ORI SCH ×5 (00:08→21:20)
[2020-04-02] MEDS: ACETAMINOPHEN 325MG TABLET PO PRN ×2 (01:11→12:51)
[2020-04-02] MEDS: DEXT 5%/0.9% NACL 1,000 ML IV SCH (02:08)
[2020-04-02 05:13] LABS: CHLORIDE 107 mEq/L (98-107)
[2020-04-02 05:13] LABS: BASOPHILS % 0.1 % (0.0-2.0); EOSINOPHILS % 1.5 % (0.0-5.0); HEMATOCRIT. 32.7 % (42.0-52.0); HEMOGLOBIN. 11.1 g/dL (14.0-18.0); LYMPHOCYTES % 12.3 % (20.0-50.0); MEAN CORPUSCULAR HEMOGLOBIN 29.9 pg (28.0-32.0); MEAN CORPUSCULAR VOLUME 88.1 fL (80.0-94.0); MEAN PLATELET VOLUME 7.7 fl (7.4-10.4); MONOCYTES % 9.1 % (2.0-8.0); PLATELET 453 x1000/uL (130-400); RED BLOOD CELL COUNT 3.71 mill/uL (4.7-6.1); RED CELL DISTRIBUTION WIDTH 13.5 % (11.6-14.6)
[2020-04-02] MEDS: INSULIN LISPRO 100 UNITS/ML SUBCUT SCH ×4 (06:00→23:27)
[2020-04-02] MEDS: METOCLOPRAMIDE HCL 10MG/2ML VIAL IV SCH ×4 (06:01→23:27)
[2020-04-02] MEDS: BLOOD SUGAR DIAGNOSTIC STRIP TEST SCH ×4 (06:01→23:27)
[2020-04-02] MEDS: PANTOPRAZOLE SODIUM 40 MG/VIAL IV SCH (08:00)
[2020-04-02] MEDS: QUETIAPINE FUMARATE 50MG TABLET PO SCH ×2 (08:00→20:03)
[2020-04-02] MEDS: LEVETIRACETAM 500MG PREMIX 100 ML IV SCH ×2 (08:01→20:04)
[2020-04-02] MEDS: METOPROLOL TARTRATE 25MG TABLET PO SCH ×2 (08:01→20:04)
[2020-04-02] MEDS: DOCUSATE SODIUM SUGAR FREE 100MG/10ML UDC NG SCH (08:01)
[2020-04-02] MEDS: MULTIVITAMINS,THER W-MINERALS TABLET PO SCH (08:02)
[2020-04-02] MEDS ORDERED: GUAIFENESIN 200MG/10ML SUGAR FREE UDC PO SCH (10:00)
[2020-04-02] MEDS ORDERED: POTASSIUM CHLORIDE INJ 40 MEQ in DEXT 5% WATER 250 ML IV NR (11:30)
[2020-04-02] MEDS: DOCUSATE SODIUM SUGAR FREE 100MG/10ML UDC GT SCH (11:30)
[2020-04-02] MEDS: GUAIFENESIN 200MG/10ML SUGAR FREE UDC NG SCH ×4 (12:09→23:27)
[2020-04-02] MEDS: INSULIN GLARGINE UD 100 UNITS/ML SYR SUBCUT SCH ×2 (12:18→21:06)
[2020-04-02] MEDS ORDERED: GUAIFENESIN 200MG/10ML SUGAR FREE UDC NG PRN (13:45)
[2020-04-02] MEDS ORDERED: PIPERACILLIN/TAZOBACTAM 3.375 G/VIAL IV SCH (14:00)
[2020-04-02] MEDS: PIPERACILLIN/TAZOBACTAM 3.375 G in DEXT 5% WATER 100 ML IV SCH ×2 (14:13→20:05)
[2020-04-03] VITALS (27 sets, daily range): BP systolic 86–143; BP diastolic 55–96
[2020-04-03] MEDS: ACETAMINOPHEN 325MG TABLET PO PRN (00:11)
[2020-04-03] MEDS: PIPERACILLIN/TAZOBACTAM 3.375 G in DEXT 5% WATER 100 ML IV SCH ×4 (03:01→21:46)
[2020-04-03] MEDS: GUAIFENESIN 200MG/10ML SUGAR FREE UDC NG SCH ×6 (03:02→23:43)
[2020-04-03] MEDS: METOCLOPRAMIDE HCL 10MG/2ML VIAL IV SCH ×4 (05:26→23:42)
[2020-04-03] MEDS: LORAZEPAM 2MG/ML CPJ IV PRN ×3 (05:26→21:44)
[2020-04-03] MEDS: DEXTROSE 50% WATER 50ML SYRINGE IV PRN (05:48)
[2020-04-03] MEDS: INSULIN LISPRO 100 UNITS/ML SUBCUT SCH ×4 (06:00→23:42)
[2020-04-03] MEDS: BLOOD SUGAR DIAGNOSTIC STRIP TEST SCH ×4 (06:04→23:43)
[2020-04-03 06:19] LABS: BASOPHILS % 0.5 % (0.0-2.0); EOSINOPHILS % 2.1 % (0.0-5.0); HEMATOCRIT. 32.1 % (42.0-52.0); HEMOGLOBIN. 10.9 g/dL (14.0-18.0); LYMPHOCYTES % 11.3 % (20.0-50.0); MEAN CORPUSCULAR HEMOGLOBIN 29.4 pg (28.0-32.0); MEAN CORPUSCULAR VOLUME 86.9 fL (80.0-94.0); MEAN PLATELET VOLUME 7.7 fl (7.4-10.4); NEUTROPHILS % 80.1 % (40.0-76.0); PLATELET 497 x1000/uL (130-400); RED CELL DISTRIBUTION WIDTH 13.9 % (11.6-14.6)
[2020-04-03 06:22] LABS: CHLORIDE 107 mEq/L (98-107)
[2020-04-03] MEDS: LEVETIRACETAM 500MG PREMIX 100 ML IV SCH ×2 (08:28→21:45)
[2020-04-03] MEDS: QUETIAPINE FUMARATE 50MG TABLET PO SCH ×2 (08:28→21:00)
[2020-04-03] MEDS: MULTIVITAMINS,THER W-MINERALS TABLET PO SCH (08:28)
[2020-04-03] MEDS: PANTOPRAZOLE SODIUM 40 MG/VIAL IV SCH (08:28)
[2020-04-03] MEDS: DOCUSATE SODIUM SUGAR FREE 100MG/10ML UDC GT SCH (08:28)
[2020-04-03] MEDS: METOPROLOL TARTRATE 25MG TABLET PO SCH ×2 (08:29→21:00)
[2020-04-03] MEDS: ALBUTEROL 6.7GM HFA INHALER ORI SCH ×4 (08:58→20:20)
[2020-04-03] MEDS: INSULIN GLARGINE UD 100 UNITS/ML SYR SUBCUT SCH ×2 (12:12→22:08)
[2020-04-04] VITALS (26 sets, daily range): BP systolic 78–148; BP diastolic 53–116
[2020-04-04] MEDS: ALBUTEROL 6.7GM HFA INHALER ORI SCH ×5 (00:30→16:20)
[2020-04-04] MEDS: PIPERACILLIN/TAZOBACTAM 3.375 G in DEXT 5% WATER 100 ML IV SCH ×4 (03:53→23:08)
[2020-04-04] MEDS: LORAZEPAM 2MG/ML CPJ IV PRN ×3 (03:53→23:16)
[2020-04-04] MEDS: GUAIFENESIN 200MG/10ML SUGAR FREE UDC NG SCH ×6 (04:00→23:10)
[2020-04-04 04:56] LABS: BASOPHILS % 0.6 % (0.0-2.0); EOSINOPHILS % 3.4 % (0.0-5.0); LYMPHOCYTES % 14.8 % (20.0-50.0); MEAN CORPUSCULAR HEMOGLOBIN 29.5 pg (28.0-32.0); MEAN PLATELET VOLUME 7.4 fl (7.4-10.4); MONOCYTES % 7.7 % (2.0-8.0); NEUTROPHILS % 73.5 % (40.0-76.0); PLATELET 490 x1000/uL (130-400); RED BLOOD CELL COUNT 3.74 mill/uL (4.7-6.1); RED CELL DISTRIBUTION WIDTH 14.1 % (11.6-14.6)
[2020-04-04 04:59] LABS: CHLORIDE 106 mEq/L (98-107)
[2020-04-04] MEDS: METOCLOPRAMIDE HCL 10MG/2ML VIAL IV SCH ×4 (05:17→23:08)
[2020-04-04] MEDS: INSULIN LISPRO 100 UNITS/ML SUBCUT SCH ×4 (06:00→23:10)
[2020-04-04] MEDS: BLOOD SUGAR DIAGNOSTIC STRIP TEST SCH ×3 (06:06→18:57)
[2020-04-04] MEDS: QUETIAPINE FUMARATE 50MG TABLET PO SCH ×2 (08:44→21:00)
[2020-04-04] MEDS: PANTOPRAZOLE SODIUM 40 MG/VIAL IV SCH (08:44)
[2020-04-04] MEDS: LEVETIRACETAM 500MG PREMIX 100 ML IV SCH ×2 (08:44→21:00)
[2020-04-04] MEDS: METOPROLOL TARTRATE 25MG TABLET PO SCH ×2 (08:45→21:00)
[2020-04-04] MEDS: MULTIVITAMINS,THER W-MINERALS TABLET PO SCH (08:45)
[2020-04-04] MEDS: DOCUSATE SODIUM SUGAR FREE 100MG/10ML UDC GT SCH (08:51)
[2020-04-04] MEDS: INSULIN GLARGINE UD 100 UNITS/ML SYR SUBCUT SCH ×2 (11:09→22:00)
[2020-04-04] MEDS: MORPHINE SULFATE 2 MG/ML CPJ (NOT FOR IM USE) IV PRN (20:44)
[2020-04-05] VITALS (24 sets, daily range): BP systolic 90–152; BP diastolic 59–110
[2020-04-05] MEDS: MORPHINE SULFATE 2 MG/ML CPJ (NOT FOR IM USE) IV PRN ×2 (00:39→20:38)
[2020-04-05] MEDS: BLOOD SUGAR DIAGNOSTIC STRIP TEST SCH ×4 (00:39→18:53)
[2020-04-05] MEDS: GUAIFENESIN 200MG/10ML SUGAR FREE UDC NG SCH (03:20)
[2020-04-05 04:34] LABS: BASOPHILS % 0.4 % (0.0-2.0); HEMATOCRIT. 30.3 % (42.0-52.0); HEMOGLOBIN. 10.5 g/dL (14.0-18.0); LYMPHOCYTES % 14.8 % (20.0-50.0); MEAN CORPUSCULAR HEMOGLOBIN 30.3 pg (28.0-32.0); MEAN CORPUSCULAR VOLUME 87.1 fL (80.0-94.0); MEAN PLATELET VOLUME 7.2 fl (7.4-10.4); MONOCYTES % 7.4 % (2.0-8.0); NEUTROPHILS % 75.4 % (40.0-76.0); PLATELET 531 x1000/uL (130-400); RED BLOOD CELL COUNT 3.48 mill/uL (4.7-6.1)
[2020-04-05 05:38] LABS: CHLORIDE 106 mEq/L (98-107)
[2020-04-05] MEDS: INSULIN LISPRO 100 UNITS/ML SUBCUT SCH ×3 (06:00→18:55)
[2020-04-05] MEDS: METOCLOPRAMIDE HCL 10MG/2ML VIAL IV SCH ×3 (06:00→17:50)
[2020-04-05] MEDS: PIPERACILLIN/TAZOBACTAM 3.375 G in DEXT 5% WATER 100 ML IV SCH ×3 (06:19→17:50)
[2020-04-05] MEDS: QUETIAPINE FUMARATE 50MG TABLET PO SCH ×2 (08:07→20:36)
[2020-04-05] MEDS: PANTOPRAZOLE SODIUM 40 MG/VIAL IV SCH (08:07)
[2020-04-05] MEDS: MULTIVITAMINS,THER W-MINERALS TABLET PO SCH (08:07)
[2020-04-05] MEDS: LEVETIRACETAM 500MG PREMIX 100 ML IV SCH ×2 (08:07→20:36)
[2020-04-05] MEDS: METOPROLOL TARTRATE 25MG TABLET PO SCH ×2 (08:08→20:37)
[2020-04-05] MEDS: LORAZEPAM 2MG/ML CPJ IV PRN ×3 (08:10→21:50)
[2020-04-05] MEDS ORDERED: POTASSIUM CHLORIDE 20MEQ/PACKET PO SCH (09:00)
[2020-04-05] MEDS: DOCUSATE SODIUM SUGAR FREE 100MG/10ML UDC GT SCH (09:00)
[2020-04-05] MEDS: ALBUTEROL 6.7GM HFA INHALER ORI SCH ×4 (09:26→20:34)
[2020-04-05] MEDS: INSULIN GLARGINE UD 100 UNITS/ML SYR SUBCUT SCH ×2 (10:05→21:25)
[2020-04-05 10:36] LABS: BG BASE EXCESS 1.3 mmol/L (-2.0-2.0); BG CARBOXYHEMOGLOBIN 0.3 % (0.5-1.5); BG DEOXYHEMOGLOBIN 1.1 % (0.0-5.0); BG FRACTION INSPIRED OXYGEN 40; BG HCO3 ACT 24.8 mmol/L (22.0-26.0); BG OXYGEN SATURATION 98.9 % (92.0-98.5); BG OXYHEMOGLOBIN 98.6 % (94.0-97.0); BG PCO2 34.9 mmHg (35.0-45.0); BG PH 7.469 (7.350-7.450); BG PO2 165.9 mmHg (75.0-100.0); BG SAMPLE SITE RIGHT RADIAL; BG TIDAL VOLUME(mL) 450 mL; BG TOTAL HEMOGLOBIN 10.8 g/dL (12.0-18.0); BG VENT MODE VENT - A/C; BG VENT RATE 12 set
[2020-04-05] MEDS ORDERED: IPRATROPIUM/ALBUTEROL 0.5-3(2.5)MG/3ML NEB HHN PRN (14:30)
[2020-04-05 16:45] LABS: T4 FREE 1.03 ng/dL (0.76-1.46)
[2020-04-05 16:57] LABS: FOLIC ACID (FOLATE) SERUM 7.9 ng/mL (>5.38)
[2020-04-05] MEDS: ACETYLCYSTEINE 100MG/ML 10% VIAL 4ML INH SCH (20:25)
[2020-04-05] MEDS: IPRATROPIUM/ALBUTEROL 0.5-3(2.5)MG/3ML NEB HHN SCH (20:25)
[2020-04-06] VITALS (33 sets, daily range): BP systolic 85–134; BP diastolic 50–100
[2020-04-06] MEDS: METOCLOPRAMIDE HCL 10MG/2ML VIAL IV SCH ×4 (00:19→18:37)
[2020-04-06] MEDS: PIPERACILLIN/TAZOBACTAM 3.375 G in DEXT 5% WATER 100 ML IV SCH ×4 (00:19→18:39)
[2020-04-06] MEDS: BLOOD SUGAR DIAGNOSTIC STRIP TEST SCH ×4 (00:20→18:37)
[2020-04-06] MEDS: INSULIN LISPRO 100 UNITS/ML SUBCUT SCH ×4 (00:20→18:38)
[2020-04-06] MEDS: MORPHINE SULFATE 2 MG/ML CPJ (NOT FOR IM USE) IV PRN ×2 (00:20→05:41)
[2020-04-06] MEDS: LORAZEPAM 2MG/ML CPJ IV PRN ×4 (03:46→20:29)
[2020-04-06 05:22] LABS: CHLORIDE 103 mEq/L (98-107)
[2020-04-06 05:30] LABS: BASOPHILS % 0.4 % (0.0-2.0); EOSINOPHILS % 3.1 % (0.0-5.0); HEMATOCRIT. 32.6 % (42.0-52.0); HEMOGLOBIN. 11.1 g/dL (14.0-18.0); LYMPHOCYTES % 18.4 % (20.0-50.0); MEAN CORPUSCULAR HEMOGLOBIN 29.6 pg (28.0-32.0); MEAN CORPUSCULAR VOLUME 86.5 fL (80.0-94.0); MEAN PLATELET VOLUME 7.4 fl (7.4-10.4); MONOCYTES % 7.6 % (2.0-8.0); NEUTROPHILS % 70.5 % (40.0-76.0); PLATELET 558 x1000/uL (130-400); RED BLOOD CELL COUNT 3.77 mill/uL (4.7-6.1); RED CELL DISTRIBUTION WIDTH 13.6 % (11.6-14.6)
[2020-04-06] MEDS: QUETIAPINE FUMARATE 50MG TABLET PO SCH ×2 (08:06→20:29)
[2020-04-06] MEDS: DOCUSATE SODIUM SUGAR FREE 100MG/10ML UDC GT SCH (08:07)
[2020-04-06] MEDS: METOPROLOL TARTRATE 25MG TABLET PO SCH ×2 (08:07→20:29)
[2020-04-06] MEDS: PANTOPRAZOLE SODIUM 40 MG/VIAL IV SCH (08:07)
[2020-04-06] MEDS: LEVETIRACETAM 500MG PREMIX 100 ML IV SCH ×2 (08:08→20:29)
[2020-04-06] MEDS: MULTIVITAMINS,THER W-MINERALS TABLET PO SCH (11:35)
[2020-04-06] MEDS: INSULIN GLARGINE UD 100 UNITS/ML SYR SUBCUT SCH ×2 (11:40→21:20)
[2020-04-06] MEDS ORDERED: SODIUM CHLORIDE 0.9% 500 ML IV ONE (12:15)
[2020-04-06] MEDS ORDERED: IOHEXOL-350 100 ML BOTTLE ONE (14:24)
[2020-04-06] MEDS: IPRATROPIUM/ALBUTEROL 0.5-3(2.5)MG/3ML NEB HHN SCH (20:50)
[2020-04-06] MEDS: ACETYLCYSTEINE 100MG/ML 10% VIAL 4ML INH SCH (20:50)
[2020-04-07] VITALS (40 sets, daily range): BP systolic 90–158; BP diastolic 55–124
[2020-04-07] MEDS: METOCLOPRAMIDE HCL 10MG/2ML VIAL IV SCH ×4 (00:06→17:34)
[2020-04-07] MEDS: PIPERACILLIN/TAZOBACTAM 3.375 G in DEXT 5% WATER 100 ML IV SCH ×4 (00:06→17:34)
[2020-04-07] MEDS: BLOOD SUGAR DIAGNOSTIC STRIP TEST SCH ×4 (00:09→17:34)
[2020-04-07] MEDS: LORAZEPAM 2MG/ML CPJ IV PRN ×4 (00:09→23:17)
[2020-04-07] MEDS: INSULIN LISPRO 100 UNITS/ML SUBCUT SCH ×4 (00:10→17:35)
[2020-04-07] MEDS: IPRATROPIUM/ALBUTEROL 0.5-3(2.5)MG/3ML NEB HHN SCH ×2 (04:40→13:43)
[2020-04-07] MEDS: PANTOPRAZOLE SODIUM 40 MG/VIAL IV SCH (08:58)
[2020-04-07] MEDS: DOCUSATE SODIUM SUGAR FREE 100MG/10ML UDC GT SCH (08:58)
[2020-04-07] MEDS: LEVETIRACETAM 500MG PREMIX 100 ML IV SCH (08:58)
[2020-04-07] MEDS: MULTIVITAMINS,THER W-MINERALS TABLET PO SCH (08:59)
[2020-04-07] MEDS: METOPROLOL TARTRATE 25MG TABLET PO SCH ×2 (08:59→21:00)
[2020-04-07] MEDS: QUETIAPINE FUMARATE 50MG TABLET PO SCH ×2 (09:07→23:15)
[2020-04-07] MEDS: INSULIN GLARGINE UD 100 UNITS/ML SYR SUBCUT SCH ×2 (09:07→23:15)
[2020-04-07] MEDS ORDERED: PHENYTOIN SODIUM EXTENDED 100MG CAPSULE PO SCH (16:45)
[2020-04-08] VITALS (34 sets, daily range): BP systolic 92–147; BP diastolic 60–92
[2020-04-08] MEDS ORDERED: INSULIN LISPRO 100 UNITS/ML SUBCUT NR (00:45)
[2020-04-08] MEDS ORDERED: INSULIN GLARGINE UD 100 UNITS/ML SYR SUBCUT NR (01:00)
[2020-04-08 06:09] LABS: CHLORIDE 102 mEq/L (98-107)
[2020-04-08 07:43] LABS: BASOPHILS % 0.5 % (0.0-2.0); HEMATOCRIT. 32.8 % (42.0-52.0); HEMOGLOBIN. 11.2 g/dL (14.0-18.0); LYMPHOCYTES % 22.2 % (20.0-50.0); MEAN CORPUSCULAR HEMOGLOBIN 29.9 pg (28.0-32.0); MEAN CORPUSCULAR VOLUME 87.1 fL (80.0-94.0); MEAN PLATELET VOLUME 7.6 fl (7.4-10.4); MONOCYTES % 9.6 % (2.0-8.0); NEUTROPHILS % 66.7 % (40.0-76.0); PLATELET 646 x1000/uL (130-400); RED BLOOD CELL COUNT 3.76 mill/uL (4.7-6.1); RED CELL DISTRIBUTION WIDTH 13.9 % (11.6-14.6)
[2020-04-08 08:31] LABS: BG BASE EXCESS 4.6 mmol/L (-2.0-2.0); BG CARBOXYHEMOGLOBIN 0.3 % (0.5-1.5); BG DEOXYHEMOGLOBIN 1.1 % (0.0-5.0); BG HCO3 ACT 28.6 mmol/L (22.0-26.0); BG METHEMOGLOBIN 0.1 % (0.0-1.5); BG OXYGEN SATURATION 98.9 % (92.0-98.5); BG OXYHEMOGLOBIN 98.5 % (94.0-97.0); BG PCO2 40.3 mmHg (35.0-45.0); BG PH 7.469 (7.350-7.450); BG PO2 167.2 mmHg (75.0-100.0); BG SAMPLE SITE RIGHT BRACHIAL; BG TIDAL VOLUME(mL) 450 mL; BG TOTAL HEMOGLOBIN 11.7 g/dL (12.0-18.0); BG VENT MODE VENT - A/C; BG VENT RATE 12 set
[2020-04-08] MEDS: IPRATROPIUM/ALBUTEROL 0.5-3(2.5)MG/3ML NEB HHN SCH ×3 (08:32→20:10)
[2020-04-08] MEDS: MULTIVITAMINS,THER W-MINERALS TABLET PO SCH (08:46)
[2020-04-08] MEDS: DOCUSATE SODIUM SUGAR FREE 100MG/10ML UDC GT SCH (08:46)
[2020-04-08] MEDS: PANTOPRAZOLE SODIUM 40 MG/VIAL IV SCH (08:46)
[2020-04-08] MEDS: METOPROLOL TARTRATE 25MG TABLET PO SCH ×2 (08:47→20:43)
[2020-04-08] MEDS: QUETIAPINE FUMARATE 50MG TABLET PO SCH ×2 (08:48→20:43)
[2020-04-08] MEDS: RISPERIDONE 0.5MG TABLET PO SCH (08:54)
[2020-04-08] MEDS ORDERED: INSULIN GLARGINE UD 100 UNITS/ML SYR SUBCUT SCH (10:00)
[2020-04-08] MEDS: METOCLOPRAMIDE HCL 10MG/2ML VIAL IV SCH ×4 (12:00→23:24)
[2020-04-08] MEDS: INSULIN LISPRO 100 UNITS/ML SUBCUT SCH ×3 (12:00→23:25)
[2020-04-08] MEDS: BLOOD SUGAR DIAGNOSTIC STRIP TEST SCH ×3 (12:39→23:15)
[2020-04-08] MEDS: LORAZEPAM 2MG/ML CPJ IV PRN ×2 (15:48→20:43)
[2020-04-09] VITALS (38 sets, daily range): BP systolic 84–190; BP diastolic 41–107
[2020-04-09] MEDS: IPRATROPIUM/ALBUTEROL 0.5-3(2.5)MG/3ML NEB HHN SCH ×3 (00:30→12:19)
[2020-04-09] MEDS: LORAZEPAM 2MG/ML CPJ IV PRN ×3 (03:02→16:30)
[2020-04-09] MEDS: BLOOD SUGAR DIAGNOSTIC STRIP TEST SCH ×3 (05:36→17:02)
[2020-04-09] MEDS: METOCLOPRAMIDE HCL 10MG/2ML VIAL IV SCH ×3 (05:53→17:05)
[2020-04-09] MEDS: INSULIN LISPRO 100 UNITS/ML SUBCUT SCH ×3 (05:56→17:12)
[2020-04-09] MEDS: PANTOPRAZOLE SODIUM 40 MG/VIAL IV SCH (08:28)
[2020-04-09] MEDS: QUETIAPINE FUMARATE 50MG TABLET PO SCH (08:28)
[2020-04-09] MEDS: DOCUSATE SODIUM SUGAR FREE 100MG/10ML UDC GT SCH (08:28)
[2020-04-09] MEDS: MULTIVITAMINS,THER W-MINERALS TABLET PO SCH (08:29)
[2020-04-09] MEDS: METOPROLOL TARTRATE 25MG TABLET PO SCH (08:29)
[2020-04-09] MEDS: RISPERIDONE 0.5MG TABLET PO SCH (08:29)
== END 2020-04-09 18:35 | disposition short-term general hospital (02) | DRG 3 ==
LOC: ER 08:45 → 7WST 11:10 → MICUSO 11:11 → UNDOADMIN 11:11 → EDBEDREQ 11:13 → ENRESERV 16:10 → MICUSO 03-10 09:25
PROVIDERS: ADMIT Internal Medicine; ATTEND Internal Medicine
PROC: 5A1955Z Respiratory Ventilation, Greater than 96 Consecutive Hours (ICD-10-PCS; principal; 2020-03-10)
PROC: 0BH17EZ Insertion of Endotracheal Airway into Trachea, Via Natural or Artificial Opening (ICD-10-PCS; 2020-03-10)
PROC: 0BH17EZ Insertion of Endotracheal Airway into Trachea, Via Natural or Artificial Opening (ICD-10-PCS; 2020-03-19)
PROC: 5A1955Z Respiratory Ventilation, Greater than 96 Consecutive Hours (ICD-10-PCS; 2020-03-19)
PROC: 00C60ZZ Extirpation of Matter from Cerebral Ventricle, Open Approach (ICD-10-PCS; 2020-03-20)
PROC: 00H032Z Insertion of Monitoring Device into Brain, Percutaneous Approach (ICD-10-PCS; 2020-03-20)
PROC: 4A103BD Monitoring of Intracranial Pressure, Percutaneous Approach (ICD-10-PCS; 2020-03-20)
PROC: B54MZZA Ultrasonography of Right Upper Extremity Veins, Guidance (ICD-10-PCS; 2020-03-21)
PROC: 05HY33Z Insertion of Infusion Device into Upper Vein, Percutaneous Approach (ICD-10-PCS; 2020-03-21)
PROC: B54NZZA Ultrasonography of Left Upper Extremity Veins, Guidance (ICD-10-PCS; 2020-03-22)
PROC: 05HY33Z Insertion of Infusion Device into Upper Vein, Percutaneous Approach (ICD-10-PCS; 2020-03-22)
PROC: 05HY33Z Insertion of Infusion Device into Upper Vein, Percutaneous Approach (ICD-10-PCS; 2020-03-23)
PROC: B54NZZA Ultrasonography of Left Upper Extremity Veins, Guidance (ICD-10-PCS; 2020-03-23)
PROC: 0B110F4 Bypass Trachea to Cutaneous with Tracheostomy Device, Open Approach (ICD-10-PCS; 2020-03-26)
PROC: 0GBJ0ZZ Excision of Thyroid Gland Isthmus, Open Approach (ICD-10-PCS; 2020-03-26)
PROC: 0DH63UZ Insertion of Feeding Device into Stomach, Percutaneous Approach (ICD-10-PCS; 2020-03-28)
PROC: 00U20JZ Supplement Dura Mater with Synthetic Substitute, Open Approach (ICD-10-PCS; 2020-04-01)
DX: A41.89 Other specified sepsis (principal); U07.1 COVID-19; J12.89 Other viral pneumonia; J96.01 Acute respiratory failure with hypoxia; G92 Toxic encephalopathy; I61.5 Nontraumatic intracerebral hemorrhage, intraventricular; D68.59 Other primary thrombophilia; E44.1 Mild protein-calorie malnutrition; E87.1 Hypo-osmolality and hyponatremia; E87.3 Alkalosis; I47.1 Supraventricular tachycardia; K56.7 Ileus, unspecified; Z99.11 Dependence on respirator [ventilator] status; Z68.1 Body mass index [BMI] 19.9 or less, adult; R65.20 Severe sepsis without septic shock; E66.9 Obesity, unspecified; D64.9 Anemia, unspecified; E11.65 Type 2 diabetes mellitus with hyperglycemia; E87.6 Hypokalemia; I10 Essential (primary) hypertension; K29.70 Gastritis, unspecified, without bleeding; K44.9 Diaphragmatic hernia without obstruction or gangrene; R13.12 Dysphagia, oropharyngeal phase; Z79.84 Long term (current) use of oral hypoglycemic drugs
CPT/HCPCS: 36415; 36600; 70496; 70498; 71045; 74018; 76937; 80048; 80053; 80061; 80076; 80185; 80305; 81003; 82140; 82375; 82550; 82607; 82728; 82746; 82805; 82962; 83036; 83605; 83615; 83735; 83880; 84100; 84145; 84439; 84443; 84478; 84481; 84484; 85025; 85379; 85384; 86140; 86850; 86900; 87070; 87804; 88304; 93005; 94003; 94640; 99285; C1713; C1725; C9113; J0690; J0696; J1100; J1650; J1815; J1953; J2060; J2250; J2270; J2370; J2405; J2543; J2704; J2765; J2920; J3010; J3480; J3490; J7030; J7042; J7050; J7060; J7608; Q9957; Q9967; U0003-CS

== ENCOUNTER 2020-10-30 18:18 | Emergency (ER) | payer OTHER, MEDICAID ==
[~2020-10-30] VITALS: Ht 160 cm; Wt 61.0 kg
[2020-10-30 18:56] VITALS: BP 135/86
== END 2020-10-30 19:31 | disposition home or self-care (01) ==
LOC: ER 18:20
DX: K94.23 Gastrostomy malfunction (principal); Y82.8 Other medical devices associated with adverse incidents; Y92.89 Other specified places as the place of occurrence of the external cause; Z86.16 Personal history of COVID-19
CPT/HCPCS: 99281